=== PATIENT | female | born 1980 | race Hispanic/Latino ===

== ENCOUNTER 2020-06-07 15:15 | Inpatient (IN) | payer SELFPAY ==
[~2020-06-07 15:15] MED LIST: Iopamidol-370 76% 500 ML 1 ML ONE
[2020-06-07 16:35] LABS: Bacteria/HPF 2+ HPF (None Seen); Bilirubin Negative (Negative); Blood, Urine Negative (Negative); Clarity Turbid (Clear); Glucose, Urine (Dipstick) Normal (Negative); Ketone, Urine Negative (Negative); Leukocyte Negative Leu/uL (Negative); Mucous/LPF 1+ LPF (<2+); Nitrite Negative (Negative); Protein, Urine (Dipstick) 100 mg/dL (Neg-Trace); RBC/HPF 0-3 HPF (0-3); Specific Gravity, Urine 1.025 (1.002-1.036); Urobilinogen 6 mg/dL (Less than 2)
[2020-06-07 16:50] LABS: #Eosinphils 0.1 thou/uL (0.0-0.7); #Lymphocytes 0.8 thou/uL (1.20-3.40); #Monocytes 0.7 thou/uL (0.11-0.59); #Neutrophils 4.1 thou/uL (1.40-6.50); %Basophils 0.7 % (0.0-1.0); %Eosinophils 2.5 % (0.0-10.0); %Lymphocytes 14.3 % (21.0-51.0); %Monocytes 12.1 % (0.0-10.0); %Neutrophils 70.4 % (42.0-75.0); Hemoglobin 10.7 g/dL (12.0-16.0); Mean Corpuscular HGB CONC 31.2 g/dL (32.0-36.0); Mean Corpuscular Hemoglobin 24.9 pg (27.0-31.0); Mean Corpuscular Volume 79.8 fL (78.0-98.0); Mean Platelet Volume 9.5 fL (7.4-10.4); Platelet Count 173 thou/uL (130-400); RBC Distribution Width 15.7 % (11.5-14.5); Red Blood Cell (RBC) Count 4.32 mill/uL (4.20-5.40); White Blood Cell (WBC) Count 5.8 thou/uL (4.8-10.8)
[2020-06-07 17:11] LABS: ALT (SGPT) 18 U/L (8-55); AST (SGOT) 35 U/L (5-34); Albumin 3.8 g/dL (3.5-5.0); Alkaline Phosphatase 187 U/L (40-110); Anion Gap 14 mmol/L (10-20); BUN (Urea Nitrogen) 8 mg/dL (7.0-18.7); Bilirubin, Total 3.8 mg/dL (0.2-1.2); Calc. Creatinine Clearance 0 mL/min (70-130); Calcium 8.3 mg/dL (7.8-10.44); Carbon Dioxide 22 mmol/L (22-29); Chloride 102 mmol/L (98-107); Globulin 3.6 g/dL (2.4-3.5); Glucose 136 mg/dL (70-105); Lipase 32 U/L (8-78); Magnesium 1.8 mg/dL (1.6-2.6); Protein, Total 7.4 g/dL (6.0-8.3); Sodium 134 mmol/L (136-145)
--- NOTE | 2020-06-07 17:25 | RAD ---
RADIOGRAPH CHEST 1 VIEW: DATE: 06/07/2020 HISTORY: 39-year-old female with dyspnea FINDINGS: Cardiac shadow is severely enlarged. There is no evidence of airspace density, pulmonary edema, or pn eumothorax. The lateral costophrenic angles are not effaced. IMPRESSION: 1) No acute pulmonary findings. 2) severe cardiomegaly without pulmonary edema.
[2020-06-07 18:11] LABS: BHCG - Serum Negative (NEGATIVE); Pregs Control Background? CLEAR/WHITE (CLR/WHITE); Pregs Control Bar Appear? YES (CONTROL BAR)
--- NOTE | 2020-06-07 18:40 | CT ---
CT ABDOMEN WITH CONTRAST CT PELVIS WITH CONTRAST: DATE: 06/07/2020 HISTORY: 39-year-old female with generalized abdominal pain and distention COMPARISON: None TECHNIQUE: IV injection of iodinated contrast media: administered. Oral contrast media:Not administered FINDINGS: Severe cardiomegaly with four-chamber dilation. Moderate-sized pericardial effusion. No pleural effusion or consolidation at lung bases. Diffusely very dilated hepatic veins and IVC. Fatty liver. No splenomegaly. Small to moderate amount of free fluid around the liver and spleen. Moderate volume of free fluid along right paracolic gutter, and large amount of free fluid along the left paracolic gutter. Moderate to large volume of free fluid within pelvic cavity. Dilated bilateral common iliac, internal iliac, and external iliac, veins. Normal bilateral kidneys. Normal abdominal aorta and common iliac arteries. No adrenal mass. Normal appendix. No gross pancreatic abnormality. No small bowel dilation. No pneumoperitoneum. Presence of ascites and mesenteric edema makes it difficult to evaluate for diverticulitis. Extensive edema throughout the subcutaneous fat circumferentially around the abdominal cavity. IMPRESSION: 1) severe cardiomegaly with severe four-chamber dilation. 2) diffuse dilation of hepatic veins and inferior vena cava due to increased right atrial back pressu re. 3) moderate volume of ascites. 4) anasarca. 5) pericardial effusion
--- NOTE | 2020-06-07 20:36 | PDOC.HHP ---
Hospitalist HPI - History of Present Illness nausea and vomiting History of Present Illness: This is a 39-year-old female patient with no significant past medical history Who presents with a 2-week history of intermittent nausea vomiting and weakness. Symptoms got progressively worse with associated swelling of her feet and abdomen leading her family to bring her to the ED for further evaluation. Nausea and vomiting typically occurs in the morning with nonbloody vomitus mainly phlegms. She denies any associated abdominal pain, diarrhea constipation dysuria frequency or hematuria. She notes intermittent swelling of her lower extremities when she walks and usually occurs by the end of the day. She also does admit to easy fatigability and shortness of breath but no orthopnea or paroxysmal nocturnal dyspnea. At presentation BP was 132/88, pulse 124, respiratory rate 18, temperature 91.1 and saturating 99% on room air. She had a mild normocytic anemia of 10.7, hyponatremia of 134, glucose 136, AST 35, alkaline phosphatase 187 BNP 123. Lipase was 32. Chest x-ray showed severe cardiomegaly without pulmonary edema. CT abdomen also noted severe four-chamber dilation of the heart with moderate si zed pericardial effusion. Hospitalist History - Past Medical History Cardiac: reports: no pertinent history - Past Surgical History Past Surgical History: reports: - Family History Family History: reports: no pertinent history - Social History Smoking Status: Never smoker Alcohol: reports: None Living Situation: With Family - Exam General Appearance: awake alert General - other findings: Obese, in no acute distress ENT: normocephalic atraumatic, no oropharyngeal lesions Neck: supple, symmetric Heart: RRR, no murmur, no gallops, no rubs Respiratory: CTAB, no rales, no ronchi Gastrointestinal: soft, non-tender, normal bowel sounds, no palpable masses, distended Extremities: no cyanosis, no clubbing, 1+ LE edema Neurological: cranial nerve grossly intact, no focal deficits Psychiatric: normal affect, normal behavior, A&O x 3 Hospitalist Results - Labs Result Diagrams: 06/11/20 04:55 06/11/20 04:55 Lab results: WBC 5.8 thou/uL (4.8-10.8) 06/07/20 16:43 Hgb 10.7 g/dL (12.0-16.0) L 06/07/20 16:43 Hct 34.5 % (36.0-47.0) L 06/07/20 16:43 MCV 79.8 fL (78.0-98.0) 06/07/20 16:43 Plt Count 173 thou/uL (130-400) 06/07/20 16:43 Neutrophils % 70.4 % (42.0-75.0) 06/07/20 16:43 Sodium 134 mmol/L (136-145) L 06/07/20 16:43 Potassium 4.0 mmol/L (3.5-5.1) 06/07/20 16:43 Chloride 102 mmol/L (98-107) 06/07/20 16:43 Carbon Dioxide 22 mmol/L (22-29) 06/07/20 16:43 BUN 8 mg/dL (7.0-18.7) 06/07/20 16:43 Creatinine 0.68 mg/dL (0.6-1.1) 06/07/20 16:43 Glucose 136 mg/dL (70-105) H 06/07/20 16:43 Lactic Acid 1.6 mmol/L (0.5-2.2) 06/07/20 16:43 Calcium 8.3 mg/dL (7.8-10.44) 06/07/20 16:43 Total Bilirubin 3.8 mg/dL (0.2-1.2) H 06/07/20 16:43 AST 35 U/L (5-34) H 06/07/20 16:43 ALT 18 U/L (8-55) 06/07/20 16:43 Alkaline Phosphatase 187 U/L (40-110) H 06/07/20 16:43 B-Natriuretic Peptide 123.3 pg/mL (0-100) H 06/07/20 17:37 Serum Total Protein 7.4 g/dL (6.0-8.3) 06/07/20 16:43 Albumin 3.8 g/dL (3.5-5.0) 06/07/20 16:43 Lipase 32 U/L (8-78) 06/07/20 16:43 Urine Ketones Negative mg/dL (Negative) 06/07/20 15:59 Urine Blood Negative (Negative) 06/07/20 15:59 Urine Nitrite Negative (Negative) 06/07/20 15:59 Ur Leukocyte Esterase Negative Geronimo/uL (Negative) 06/07/20 15:59 Urine RBC 0-3 HPF (0-3) 06/07/20 15:59 Urine WBC 4-6 HPF (0-3) A 06/07/20 15:59 Ur Squamous Epith Cells 4-6 HPF (0-3) A 06/07/20 15:59 Urine Bacteria 2+ HPF (None Seen) A 06/07/20 15:59 Hospitalist H&P A/P - Plan Plan: This is a 39-year-old female patient with no significant past medical history presents with with nausea vomiting and generalized body swelling. Initial evaluation concerning for severe cardiomyopathy with moderate pericardial effusion and ascites. Severe four-chamber cardiomyopathy Acute on cardiology Order further evaluation of echo Monitor on telemetry Cardiology consult in a.m. Acute heart failure exacerbation Likely secondary to cardiomyopathy of unclear etiology. We will diureseshe is Joanne mclean. Will start a 20 and increase to 40 Echocardiogram in a.m. Appreciate cardiology input. Moderate pericardial effusion Would require possible drainage Consult cardiology. Tachycardia Unclear etiology. She is slightly anemic however. Likely due to cardiomyopathy Start carvedilol Appreciate cardiology evaluation. Ascites Likely secondary to heart failure Start diuresis Nausea and vomiting Unclear etiology As needed ondansetron Monitor electrolytes VT prophylaxisLovenox CODE STATUSfull code
[2020-06-07 21:31] VITALS: BMI 48.2
[2020-06-07] MEDS ORDERED: Carvedilol 6.25 MG TAB PO SCH (22:00)
[2020-06-08 04:35] LABS: #Eosinphils 0.1 thou/uL (0.0-0.7); #Lymphocytes 0.7 thou/uL (1.20-3.40); #Monocytes 0.6 thou/uL (0.11-0.59); #Neutrophils 3.4 thou/uL (1.40-6.50); %Basophils 0.8 % (0.0-1.0); %Eosinophils 1.9 % (0.0-10.0); %Lymphocytes 14.4 % (21.0-51.0); Hemoglobin 10.3 g/dL (12.0-16.0); Mean Corpuscular HGB CONC 30.5 g/dL (32.0-36.0); Mean Corpuscular Hemoglobin 24.5 pg (27.0-31.0); Mean Corpuscular Volume 80.3 fL (78.0-98.0); Mean Platelet Volume 9.5 fL (7.4-10.4); Platelet Count 152 thou/uL (130-400); RBC Distribution Width 15.9 % (11.5-14.5); Red Blood Cell (RBC) Count 4.19 mill/uL (4.20-5.40); White Blood Cell (WBC) Count 4.8 thou/uL (4.8-10.8)
[2020-06-08 04:45] LABS: SARS-CoV-2 MS2 Positive; SARS-CoV-2 N Gene Negative; SARS-CoV-2 S Gene Negative; SARS-CoV-2 by NAA Not Detected (NotDetected); SARS-CoV-2 orf1ab Negative
[2020-06-08 04:55] LABS: Anion Gap 13 mmol/L (10-20); BUN (Urea Nitrogen) 9 mg/dL (7.0-18.7); Calc. Creatinine Clearance 198 mL/min (70-130); Calcium 8.1 mg/dL (7.8-10.44); Carbon Dioxide 21 mmol/L (22-29); Chloride 103 mmol/L (98-107); Glucose 122 mg/dL (70-105); Potassium 4.4 mmol/L (3.5-5.1); Sodium 133 mmol/L (136-145)
[2020-06-08] MEDS ORDERED: Furosemide 20 MG/2 ML VIAL SLOW IVP SCH (09:00)
[2020-06-08] MEDS: Enoxaparin Sodium 40 MG/0.4 ML SYRINGE SC SCH (09:04)
[2020-06-08] MEDS: Carvedilol 6.25 MG TAB PO SCH ×2 (09:05→16:46)
[2020-06-08] MEDS ORDERED: Iopamidol-370 76% 500 ML 1 ML ONE (09:39)
--- NOTE | 2020-06-08 10:53 | CON ---
DATE OF CONSULTATION: REASON FOR CONSULTATION: Edema and pericardial effusion. HISTORY OF PRESENT ILLNESS: Ms. Fairbanks is a 39-year-old woman with no significant past medical history. Over the last week, she has had increased abdominal girth and lower extremity edema. She denies shortness of breath. She states she has gained 20 pounds over the last 2 weeks. No nausea, vomiting, or other associated symptoms. She is morbidly obese with a BMI of 48. She denies being sedentary. She also denies travel outside the country. PAST MEDICAL HISTORY: Obesity, otherwise negative. SURGICAL HISTORY: . FAMILY HISTORY: Negative. SOCIAL HISTORY: No current tobacco or alcohol use. She currently works as a signaler. REVIEW OF SYSTEMS: A 10-point review of systems is reviewed as above, otherwise negative. She also denies snoring. PHYSICAL EXAMINATION: VITAL SIGNS: Blood pressure 108/67, pulse 110, respirations 20. GENERAL: Patient is a pleasant woman who is in no acute distress. The patient appears her stated age. NEUROLOGIC: The patient is alert and oriented x3 with no focal neurologic deficits. HEENT: Sclerae without icterus. Mouth has moist mucous membranes with normal pallor. NECK: No JVD. Carotid upstroke brisk. No bruits bilaterally. LUNGS: Clear to auscultation with unlabored respirations. BACK: No scoliosis or kyphosis. CARDIAC: Regular rate and rhythm with normal S1 and S2. No S3 or S4 noted. No significant rubs, murmurs, thrills, or gallops noted throughout the precordium. PMI is not displaced. There is no parasternal heave. ABDOMEN: Distention. EXTREMITIES: 3+ pitting edema. SKIN: No gross abnormalities. PERTINENT LABORATORY DATA: Include a hemoglobin of 10.3, creatinine 0.68. Glucose 122, alkaline phosphatase 187, AST of 35. BNP of 123. CT scan of the chest showed a moderate-sized pericardial effusion with mitral enlargement. Right ventricle and left ventricle appeared enlarged. Preliminary echo with normal LVEF. Right ventricle appears enlarged with severe tricuspid regurgitation. Small pericardial effusion present. IMPRESSION: 1. Anasarca. 2. Edema. 3. Obesity. 4. aflutter RECOMMENDATIONS: Ms. Fairbanks's prelim echo did suggest enlarged right ventricle. The acuity of her current demise is unknown. At this point, I recommend Lasix to relieve some of her extravascular and intravascular volume. We would recommend a CT of the chest to rule out PE. She also likely has obstructive sleep apnea, but does not account for the acuity. Agree with adding Coreg. May also consider digoxin. Pt in aflutter which may not be the primary issue but a byproiduct of cause of RV dysfunction. Consult EP. Job ID: [id number] MTDD
[2020-06-08] MEDS ORDERED: Furosemide 40 MG/4 ML VIAL IVP SCH (12:30)
--- NOTE | 2020-06-08 13:01 | PDOC.HOSPP ---
- Subjective Encounter Date: 06/08/20 Encounter Time: 10:20 Subjective: Patient sitting in the chair. Yakut speaking only. Communicated with her through [employer] mathematics faculty member. She has 2+ pitting edema. - Objective Vital Signs & Weight: Vital Signs (12 hours) Temp Pulse Resp BP BP Pulse Ox 06/08/20 11:00 98 F 112 H 16 107/55 L 98 06/08/20 09:05 108/86 06/08/20 07:00 98.5 F 110 H 16 108/67 99 06/08/20 03:35 98.5 F 115 H 18 103/63 98 06/08/20 01:00 98.1 F 115 H 24 H 101/70 99 Weight Weight 247 lb I&O: 06/07/20 06/08/20 06/09/20 06:59 06:59 06:59 Intake Total 720 Balance 720 Result Diagrams: 06/08/20 04:13 06/08/20 04:13 Hospitalist ROS - Medication Medications: Active Medications Generic Name Dose Route Start Last Admin Trade Name Medardo PRN Reason Stop Dose Admin Carvedilol 6.25 mg 06/08/20 08:00 06/08/20 09:05 Carvedilol 6.25 Mg Tab PO 6.25 mg BID-WM MIKE Administration Enoxaparin Sodium 40 mg 06/08/20 09:00 06/08/20 09:04 Enoxaparin Sodium 40 Mg/0.4 Ml Syringe SC 40 mg 0900 MIKE Administration - Exam General Appearance: NAD, awake alert Eye: PERRL ENT: normocephalic atraumatic Neck: supple Heart: RRR, normal peripheral pulses Respiratory: CTAB, normal chest expansion Gastrointestinal: soft, normal bowel sounds Extremities: 2+ LE edema Neurological: no focal deficits Psychiatric: normal affect, normal behavior, A&O x 3 Hosp A/P - Plan 39-year-old female patient with no significant past medical history presents with with nausea vomiting and generalized body swelling. Initial evaluation concerning for severe cardiomyopathy with moderate pericardial effusion and ascites. Severe four-chamber cardiomyopathy -Probable acute diastolic CHF exacerbation -Echo pending Cardiology consulted -IV diuresis Moderate pericardial effusion -Hemodynamically stable Ascites Portal gastropathy Likely secondary to heart failure Start diuresis Nausea and vomiting -Probably due to portal gastropathy As needed ondansetron Monitor electrolytes VT prophylaxisLovenox CODE STATUSfull code TSH and hepatitis panel
--- NOTE | 2020-06-08 17:48 | CT ---
CTA Angio Chest W Con 06/08/2020 5:30 PM Indication: History of shortness of breath and chest discomfort Technique: Multiple CTA images were obtained of the thorax with IV contrast. 3-D rendering: MIP lia nstructed images were created and reviewed. Comparison: No relevant prior studies available. Findings: Pulmonary arteries: No central or segmental pulmonary embolus is evident. Heart and Aorta: There is prominent cardiomegaly with moderate pericardial effusion Mediastinum:Normal appearing. No enlarged lymph nodes. Lungs:Subsegmental volume loss and posterior aspects of both upper lobes. There is subsegmental volum e loss in the left lower lobe. Pleural space: Clear. Upper Abdomen: There is cirrhotic morphology of the liver. There is reflux of contrast within the IV C and hepatic veins consistent with right heart dysfunction. Osseous Structures: There is scattered degenerative and osteoarthritic change present. Soft tissues:No abnormality. Other findings:None. Impression: 1. No central segmental pulmonary most. 2. Severe cardiomegaly with moderate pericardial effusion 3. Cirrhotic morphology of the liver with reflux of contrast in the IVC and hepatic veins consistent with some right heart dysfunction.
[2020-06-08] MEDS ORDERED: FLU VACC QS2020-21(6MOS UP)/PF 60 MCG/0.5 ML SYRINGE IM ONE (21:00)
[2020-06-09] MEDS: Furosemide 40 MG/4 ML VIAL SLOW IVP SCH ×2 (05:28→11:54)
[2020-06-09] MEDS: Enoxaparin Sodium 40 MG/0.4 ML SYRINGE SC SCH (08:31)
[2020-06-09] MEDS: Carvedilol 6.25 MG TAB PO SCH (08:31)
--- NOTE | 2020-06-09 13:51 | CON ---
DATE OF CONSULTATION: 06/09/2020 REASON FOR CONSULTATION: Typical atrial flutter. HISTORY OF PRESENT ILLNESS: Ms. Fairbanks is a pleasant 39-year-old Nigerian-speaking female with no prior cardiac history, admitted with abdominal and lower extremity edema. She was noted to be in typical atrial flutter with 2-[address] showed a pericardial effusion, which turned out to be trivial on echocardiogram and cirrhotic morphology of the liver with dilated IVC and hepatic veins. Echocardiogram on June 08, 2020, showed severely dilated left atrium and severely dilated right atrium. The right ventricle is moderately dilated. There are severe tricuspid regurgitation and moderate mitral regurgitation. Left ventricular ejection fraction could not be assessed; however, the systolic function appears to be at the level of lower limits of normal to mildly depressed. She is currently being treated with IV diuresis. PAST MEDICAL HISTORY: Unremarkable. PAST SURGICAL HISTORY: section. FAMILY HISTORY: Unremarkable. SOCIAL HISTORY: , Nigerian-speaking. No alcohol. Never smoked. REVIEW OF SYSTEMS: 10-point review of systems negative other than lower extremity edema and abdominal distention. PHYSICAL EXAMINATION: GENERAL: Alert and oriented x4. No apparent distress. VITAL SIGNS: Afebrile, pulse 114, blood pressure 102/64, respiratory rate 12, oxygen saturation 97% on room air. HEENT: No lesions. Sclerae clear. CARDIOVASCULAR: Tachycardic, regular rhythm. LUNGS: Clear to auscultation bilaterally. ABDOMEN: Distended. EXTREMITIES: 2+ bilateral edema. LABORATORY DATA: WBC 4.8, hemoglobin 10.3, platelets 152. Sodium 134, potassium 4.0, AST 35, ALT 18. BNP 123. EKG; typical atrial flutter with 2-1 conduction. IMPRESSION AND PLAN: 1. Anasarca. 2. Morbid obesity. 3. Typical atrial flutter. 4. Severe biatrial enlargement with moderately dilated right ventricle, evidence of right heart failure. RECOMMENDATIONS: 1. Diuresis. 2. Consider transesophageal echocardiogram and cardioversion for her atrial flutter. She is not currently a candidate for ablation. 3. Workup right heart failure and possible liver disease. 4. Check TSH. Job ID: [id number]
--- NOTE | 2020-06-09 14:26 | PDOC.HOSPP ---
- Subjective Encounter Date: 06/09/20 Encounter Time: 11:10 Subjective: Patient doing well she has been diuresed but her output is not very impressive for Lasix IV twice a day. Spouse at bedside both Afghan speaking only. Fortunately their daughter is on the phone I was able to do video conversation with her patient needs cardioversion for her a flutter. I was trying to get more information on the etiology behind her cardiomyopathy specifically right heart failure. No recent . Patient does not drink alcohol. Symptoms were only acute in the sense 2 to 3 weeks duration. - Objective Vital Signs & Weight: Vital Signs (12 hours) Temp Pulse Resp BP BP Pulse Ox 06/09/20 11:49 97.9 F 72 17 99/55 L 99 06/09/20 07:46 97.2 F L 101 H 18 113/75 98 06/09/20 03:05 97.7 F 113 H 16 106/70 99 Weight Weight 247 lb 14.4 oz I&O: 06/08/20 06/09/20 06/10/20 06:59 06:59 06:59 Intake Total 720 600 Output Total 300 Balance 720 300 Result Diagrams: 06/08/20 04:13 06/08/20 04:13 Hospitalist ROS - Medication Medications: Active Medications Generic Name Dose Route Start Last Admin Trade Name Freq PRN Reason Stop Dose Admin Carvedilol 6.25 mg 06/08/20 08:00 06/09/20 08:31 Carvedilol 6.25 Mg Tab PO 6.25 mg BID-WM MIKE Administration Enoxaparin Sodium 40 mg 06/08/20 09:00 06/09/20 08:31 Enoxaparin Sodium 40 Mg/0.4 Ml Syringe SC 40 mg 0900 MIKE Administration Furosemide 40 mg 06/09/20 06:00 06/09/20 11:54 Furosemide 40 Mg/4 Ml Vial SLOW IVP 40 mg 0600,1200 MIKE Administration - Exam General Appearance: NAD, awake alert Eye: PERRL ENT: normocephalic atraumatic Neck: supple Heart: RRR Respiratory: CTAB, normal chest expansion Gastrointestinal: soft, normal bowel sounds Neurological: cranial nerve grossly intact, no focal deficits Psychiatric: A&O x 3 Hosp A/P - Plan 39-year-old female patient with no significant past medical history presents with with nausea vomiting and generalized body swelling. Initial evaluation concerning for severe cardiomyopathy with moderate pericardial effusion and ascites. Severe four-chamber cardiomyopathy -Probable acute diastolic CHF exacerbation -Echo showed low normal EF function; biatrial enlargement and severe right ventricle dilation aFlutter EP recommended transesophageal echo and cardioversion and and probably not a candidate for ablation at this time. -IV diuresis Moderate pericardial effusion CT however echo showed very trivial effusion Ascites Portal gastropathy Likely secondary to right heart failure -Since this is a right heart failure will be very careful with the diuresis. Her blood pressure is coming on the low normal side. I will titrate the diuretic dose as her blood pressure allows. -Also will reduce the Coreg dose. Nausea and vomiting -Probably due to portal gastropathy As needed ondansetron Monitor electrolytes VT prophylaxisLovenox CODE STATUSfull code TSH pending Covid Spouse at bedside both Afghan speaking only. Fortunately their daughter is on the phone I was able to do video conversation with her patient needs cardioversion for her a flutter. I was trying to get more information on the etiology behind her cardiomyopathy specifically right heart failure. No recent . No recent viral symptoms patient does not drink alcohol. Symptoms were only acute of 2 to 3 weeks duration. Patient does not want to go through cardioversion. Had a conversation with Dr. Angel, who would try tertiary center. Meanwhile I will titrate the diuretics as her blood pressure allows. -Placed a consult for CHF specialist Dr. Adams. Possible obstructive sleep apnea/obesity hypoventilation syndrome -Probable etiology for her right heart failure in addition to a flutter. She could also have a pulmonary hypertension even the echo does not make any comment on that. She does have a mitral valve calcifications. -She would benefit with outpatient sleep study. We will also request our overnight nurses to monitor her for any sleep apnea symptoms.
[2020-06-09] MEDS: Metolazone 2.5 MG TAB PO SCH (14:49)
--- NOTE | 2020-06-09 16:05 | CON ---
DATE OF CONSULTATION: 06/09/2020 HISTORY OF PRESENT ILLNESS: Ms. Fairbanks has had difficulty with diuresis. She has been on IV Lasix in addition to metolazone. She also continues to be in atrial flutter. PHYSICAL EXAMINATION: VITAL SIGNS: Blood pressure 97/68, pulse 82, temperature 97.9, heart rate 83. LUNGS: Clear to auscultation. HEART: Irregularly irregular. ABDOMEN: Distended. EXTREMITIES: 2 to 3+ pitting edema. PERTINENT LABORATORY DATA: Hemoglobin 10.3, hematocrit 32.7, platelet count of 152. Creatinine 0.68. Sodium 133, felt better with 3.8. AST 35, ALT of 18, alkaline phosphatase 187. IMPRESSION: 1. Right ventricular failure. 2. Passive venous congestion. 3. Obesity. RECOMMENDATIONS: Etiology to Ms. Fairbanks's current demise is unknown. This likely represents obstructive sleep apnea. Cannot completely exclude mitral stenosis. The mitral valve was heavily calcified with what appeared to be decreased excursion, but a pressure half-time could not be assessed due to atrial flutter. This though is felt to be less likely due to clear lungs. Her main issue has been edema, which is from RV failure. Discussed the case with the hospitalist, Dr. Beach. We will discontinue Coreg to allow her pressure to rise and continue Lasix in addition to metolazone. We would certainly consider Dobutrex, but I am concerned about an increased heart rate, therefore, decrease in cardiac output. I discussed ANJANA cardioversion, which would be the most optimal choice. She may have had this all long, but developed atrial flutter over the last several weeks causing her demise. We discussed ANJANA and cardioversion in full detail in Italian. The risks include, but not limited to the following: Damage to teeth, mouth, back of throat; damage to esophagus, as well as reaction to medication and aspiration pneumonia. Also discussed risks of cardioversion including stroke, burning of skin in addition to failed cardioversion. I did state that the risks were very low. Despite this being low, she has opted to not proceed with cardioversion. This limits our options on treatment. At this point, we will discontinue carvedilol in hopes that her blood pressure continues to increase to allow more diuretic use. We will have further discussion about the ANJANA cardioversion. Job ID: [id number]
[2020-06-09] MEDS ORDERED: Sodium Chloride 0.9% 10 ML ONE (21:19)
[2020-06-10 05:14] LABS: #Eosinphils 0.1 thou/uL (0.0-0.7); #Monocytes 0.6 thou/uL (0.11-0.59); #Neutrophils 2.8 thou/uL (1.40-6.50); %Basophils 0.6 % (0.0-1.0); %Eosinophils 1.9 % (0.0-10.0); %Lymphocytes 21.8 % (21.0-51.0); %Monocytes 13.2 % (0.0-10.0); %Neutrophils 62.6 % (42.0-75.0); Mean Corpuscular HGB CONC 30.3 g/dL (32.0-36.0); Mean Corpuscular Hemoglobin 24.2 pg (27.0-31.0); Mean Corpuscular Volume 79.9 fL (78.0-98.0); Mean Platelet Volume 9.8 fL (7.4-10.4); Platelet Count 156 thou/uL (130-400); RBC Distribution Width 15.7 % (11.5-14.5); Red Blood Cell (RBC) Count 4.12 mill/uL (4.20-5.40); White Blood Cell (WBC) Count 4.5 thou/uL (4.8-10.8)
[2020-06-10] MEDS ORDERED: Sodium Chloride 0.9% 10 ML ONE (05:23)
[2020-06-10 05:40] LABS: Anion Gap 15 mmol/L (10-20); BUN (Urea Nitrogen) 14 mg/dL (7.0-18.7); Calc. Creatinine Clearance 185 mL/min (70-130); Calcium 8.2 mg/dL (7.8-10.44); Carbon Dioxide 24 mmol/L (22-29); Chloride 100 mmol/L (98-107); Glucose 96 mg/dL (70-105); Sodium 136 mmol/L (136-145)
[2020-06-10] MEDS: Furosemide 20 MG/2 ML VIAL SLOW IVP SCH ×2 (06:08→12:27)
[2020-06-10] MEDS: Enoxaparin Sodium 40 MG/0.4 ML SYRINGE SC SCH (08:17)
--- NOTE | 2020-06-10 09:16 | PRG ---
DATE OF SERVICE: 06/10/2020 SUBJECTIVE: Ms. Fairbanks feels better overall. No significant shortness of breath. She states the swelling in her abdominal region has been reduced. She has lost 3 pounds, although she has had minimal changes over 24 hours. Her Coreg has been discontinued to allow her pressure to rise, to allow Lasix and metolazone to be given. She continues to be adamant about not proceeding with any types of procedure or prefer medical therapy. OBJECTIVE: VITAL SIGNS: Blood pressure 103/70, pulse 58, temperature 97.9. LUNGS: Clear to auscultation. HEART: Regular rate and rhythm. ABDOMEN: Distended. EXTREMITIES: 2+ pitting edema. PERTINENT LABORATORY DATA: Hemoglobin 10.0, hematocrit 32.9. BNP of 123. TSH 8.3. IMPRESSION: 1. Right-sided failure. 2. Obesity. RECOMMENDATIONS: Etiology to right-sided failure is unknown. CK and MB and troponin had been drawn to assess for a possible myocarditis, although the patient has not had a viral syndrome. Her TSH is elevated and will need to be treated. It would be deferred to hospitalist. Her symptoms may be related to mitral stenosis, which was difficult to assess given she had atrial flutter. Pressure half-time could not be assessed, therefore necessitating ANJANA to assess the mitral valve. Her symptoms though do not correspond with mitral stenosis given no shortness of breath and no significant pulmonary edema with normal BNP. Most likely etiology is undiagnosed sleep apnea, which may be difficult for Ms. Fairbanks to diagnose as an outpatient given limited financial resources. The patient also has severe tricuspid regurgitation, which is likely related to RV failure and not vice versa. The patient has no previous congenital heart defects to her knowledge. Also no reason for constrictive pericarditis. May discuss with Pulmonary on further etiologies. Job ID: [id number]
[2020-06-10] MEDS: Metolazone 2.5 MG TAB PO SCH (12:27)
--- NOTE | 2020-06-10 12:58 | PDOC.HOSPP ---
- Subjective Encounter Date: 06/10/20 Encounter Time: 09:55 Subjective: Patient appears well. She lost few pounds with diuresis to be exact 3 pounds. Coreg has been discontinued. I discussed with the patient regarding a transesophageal echo as well as cardioversion. Patient does not want any intervention at this point. That limits any aggressive medical intervention at this point. We will diurese her as much as her blood pressure allows. If she changed her mind in the next day or 2 will request the on-call orthotic practitioner for transition esophageal echo and cardioversion. I believe she has chronic cardiomyopathy, which is overt and recently due to her A. fib/flutter she became symptomatic. - Objective Vital Signs & Weight: Vital Signs (12 hours) Temp Pulse Pulse Pulse Resp BP BP 06/10/20 12:00 98.5 F 74 16 06/10/20 09:48 104 H 89 120/78 118/81 06/10/20 08:00 98.2 F 87 16 06/10/20 04:40 97.9 F 58 L 18 BP Pulse Ox 06/10/20 12:00 106/69 99 06/10/20 09:48 06/10/20 08:00 113/70 98 06/10/20 04:40 103/70 98 Weight Weight 244 lb I&O: 06/09/20 06/10/20 06/11/20 06:59 06:59 06:59 Intake Total 600 830 Output Total 300 900 Balance 300 -70 Result Diagrams: 06/10/20 04:22 06/10/20 04:22 Hospitalist ROS - Medication Medications: Active Medications Generic Name Dose Route Start Last Admin Trade Name Medardo PRN Reason Stop Dose Admin Enoxaparin Sodium 40 mg 06/08/20 09:00 06/10/20 08:17 Enoxaparin Sodium 40 Mg/0.4 Ml Syringe SC 40 mg 0900 MIKE Administration Furosemide 20 mg 06/10/20 06:00 06/10/20 12:27 Furosemide 20 Mg/2 Ml Vial SLOW IVP 20 mg 0600,1200 MKIE Administration Metolazone 2.5 mg 06/09/20 13:30 06/10/20 12:27 Metolazone 2.5 Mg Tab PO 2.5 mg 1330 MIKE Administration - Exam General Appearance: NAD, awake alert Eye: PERRL ENT: normocephalic atraumatic Neck: supple Heart: RRR, normal peripheral pulses Respiratory: CTAB, normal chest expansion Gastrointestinal: soft, normal bowel sounds Extremities: 1+ LE edema Neurological: cranial nerve grossly intact, no focal deficits Musculoskeletal: generalized weakness Psychiatric: normal affect, normal behavior, A&O x 3 Hosp A/P - Plan 39-year-old female patient with no significant past medical history presents with with nausea vomiting and generalized body swelling. Initial evaluation concerning for severe cardiomyopathy with moderate pericardial effusion and ascites. Severe four-chamber cardiomyopathy -Probable acute diastolic CHF exacerbation -Echo showed low normal EF function; biatrial enlargement and severe right ventricle dilation aFlutter EP recommended transesophageal echo and cardioversion and and probably not a candidate for ablation at this time. -IV diuresis Moderate pericardial effusion CT however echo showed very trivial effusion Ascites Portal gastropathy Likely secondary to right heart failure -Since this is a right heart failure will be very careful with the diuresis. Her blood pressure is coming on the low normal side. I will titrate the diuretic dose as her blood pressure allows. -Also will reduce the Coreg dose. Nausea and vomiting -Probably due to portal gastropathy As needed ondansetron Monitor electrolytes VT prophylaxisLovenox CODE STATUSfull code TSH pending Covid Spouse at bedside both Hungarian speaking only. Fortunately their daughter is on the phone I was able to do video conversation with her patient needs cardioversion for her a flutter. I was trying to get more information on the etiology behind her cardiomyopathy specifically right heart failure. No recent . No recent viral symptoms patient does not drink alcohol. Symptoms were only acute of 2 to 3 weeks duration. Patient does not want to go through cardioversion. Had a conversation with Dr. Angel, who would try tertiary center. Meanwhile I will titrate the diuretics as her blood pressure allows. -Placed a consult for CHF specialist Dr. Adams. Possible obstructive sleep apnea/obesity hypoventilation syndrome -Probable etiology for her right heart failure in addition to a flutter. She could also have a pulmonary hypertension even the echo does not make any comment on that. She does have a mitral valve calcifications. -She would benefit with outpatient sleep study. We will also request our overnight nurses to monitor her for any sleep apnea symptoms. 29th likely she has chronic cardiomyopathy, which was overt and recently due to her A. fib/flutter she became symptomatic. I discussed with the patient regarding a transesophageal echo as well as cardioversion. Patient does not want any intervention at this point. She expressed to the same with the Dr. Angel. Her unwillingness limits any aggressive medical intervention at this point. We will diurese her as much as her blood pressure allows. If she changed her mind in the next day or 2 will request the on-call orthotic practitioner for transition esophageal echo and cardioversion. She also likely has hypothyroidism. -This contributes to some of her symptoms of anasarca. -She is not on any supplement at home -We will check free T4 and start her on low-dose thyroid supplement. Possible obstructive sleep apnea and obesity hypoventilation syndrome -Though proper sleep study has to be done as an outpatient , it is unclear whether she would follow through. -Will request emergency room physician assistant operations representative for any recommendations including AutoPap, as she needs transesophageal echo as well as cardioversion to restore sinus rhythm to prevent the worsening of her cardiomyopathy. --And if necessary she may need ischemic work-up including cath. Morbid obesity It does not appear patient follows with health care routinely -
[2020-06-10] MEDS ORDERED: Potassium Chloride 20 MEQ TAB PO SCH (13:00)
--- NOTE | 2020-06-10 16:15 | CON ---
DATE OF CONSULTATION: 06/10/2020 HISTORY OF PRESENT ILLNESS: Ms. Fairbanks is a 39-year-old female who is Setswana-speaking. I was consulted for possible sleep apnea. She was presented with atrial flutter, ascites, hepatic congestion, and finding suggestive of pulmonary hypertension. She does have significant left atrial dilation and mitral regurgitation. Unfortunately, the patient has declined further workup or therapy of her atrial flutter. PAST MEDICAL HISTORY: Otherwise unremarkable. FAMILY HISTORY: Unremarkable. Negative for lung disease in early age. REVIEW OF SYSTEMS: She is nonsmoker, nondrinker. Her 10-point review of systems otherwise negative. PHYSICAL EXAMINATION: GENERAL: She is very pleasant, cooperative. She is 5 feet tall, 244 pounds. BMI is 47. VITAL SIGNS: Her heart rate is in the 80s. She is afebrile. Respiratory rate is in the teens. Oximetry is 99% on room air. Blood pressure 120/78. Intake and output reported as -70 mL today. DIAGNOSTIC DATA: Chest x-ray is unremarkable except for cardiomegaly. IMPRESSION: Elevated pulmonary artery pressures, possibly secondary to sleep apnea. I suspect given her left atrial dilation, mitral valve disease may be contributing. Unfortunately, she has declined further workup or treatment of her atrial flutter or further workup of her valvular heart disease. We do not do inpatient sleep studies, so the only option will be referred to have an outpatient sleep study scheduled if she wishes to go through that. I do not really have any other therapeutic options. I doubt she has asthma. I doubt she has primary pulmonary hypertension. This is a 50 min consult greater than 50% of the time was spent on the unit with coordination of care. Job ID: [id number] MTDD
[2020-06-11] MEDS: Furosemide 20 MG/2 ML VIAL SLOW IVP SCH ×2 (05:25→13:08)
[2020-06-11] MEDS: Levothyroxine Sodium 50 MCG TAB PO SCH (05:25)
[2020-06-11 05:28] LABS: #Eosinphils 0.1 thou/uL (0.0-0.7); #Lymphocytes 1.2 thou/uL (1.20-3.40); #Monocytes 0.7 thou/uL (0.11-0.59); #Neutrophils 2.8 thou/uL (1.40-6.50); %Basophils 0.6 % (0.0-1.0); %Eosinophils 1.7 % (0.0-10.0); %Lymphocytes 24.4 % (21.0-51.0); %Neutrophils 59.3 % (42.0-75.0); Hemoglobin 10.1 g/dL (12.0-16.0); Mean Corpuscular HGB CONC 31.3 g/dL (32.0-36.0); Mean Corpuscular Hemoglobin 24.7 pg (27.0-31.0); Mean Corpuscular Volume 78.9 fL (78.0-98.0); Mean Platelet Volume 9.7 fL (7.4-10.4); Platelet Count 170 thou/uL (130-400); RBC Distribution Width 15.4 % (11.5-14.5); Red Blood Cell (RBC) Count 4.08 mill/uL (4.20-5.40); White Blood Cell (WBC) Count 4.8 thou/uL (4.8-10.8)
[2020-06-11 05:43] LABS: Anion Gap 15 mmol/L (10-20); BUN (Urea Nitrogen) 10 mg/dL (7.0-18.7); Calc. Creatinine Clearance 183 mL/min (70-130); Calcium 8.5 mg/dL (7.8-10.44); Carbon Dioxide 29 mmol/L (22-29); Chloride 96 mmol/L (98-107); Glucose 91 mg/dL (70-105); Sodium 137 mmol/L (136-145)
[2020-06-11 05:46] LABS: Potassium 2.7 mmol/L (3.5-5.1)
[2020-06-11] MEDS: Potassium Chloride 20 MEQ TAB PO SCH ×2 (06:34→08:15)
[2020-06-11] MEDS: Enoxaparin Sodium 40 MG/0.4 ML SYRINGE SC SCH (08:15)
[2020-06-11] MEDS: Potassium Chloride 10 MEQ TAB PO SCH (08:15)
--- NOTE | 2020-06-11 12:13 | PDOC.HOSPP ---
- Subjective Encounter Date: 06/11/20 Encounter Time: 10:35 Subjective: I discussed with the patient through her daughter as an secured entrance monitor in the phone. And cardiac rehab staff nearby. - Objective Vital Signs & Weight: Vital Signs (12 hours) Temp Pulse Resp BP BP Pulse Ox 06/11/20 11:19 119 H 16 114/78 98 06/11/20 08:11 98.6 F 88 16 117/74 97 06/11/20 03:28 98.3 F 79 20 99/65 98 Weight Weight 244 lb 4.8 oz I&O: 06/10/20 06/11/20 06/12/20 06:59 06:59 06:59 Intake Total 830 1480 Output Total 900 Balance -70 1480 Result Diagrams: 06/11/20 04:55 06/11/20 04:55 Hospitalist ROS - Medication Medications: Active Medications Generic Name Dose Route Start Last Admin Trade Name Freq PRN Reason Stop Dose Admin Enoxaparin Sodium 40 mg 06/08/20 09:00 06/11/20 08:15 Enoxaparin Sodium 40 Mg/0.4 Ml Syringe SC 40 mg 0900 MIKE Administration Furosemide 20 mg 06/10/20 06:00 06/11/20 05:25 Furosemide 20 Mg/2 Ml Vial SLOW IVP 20 mg 0600,1200 MIKE Administration Levothyroxine Sodium 50 mcg 06/11/20 06:00 06/11/20 05:25 Levothyroxine Sodium 50 Mcg Tab PO 50 mcg 0600 MIKE Administration Metolazone 2.5 mg 06/09/20 13:30 06/10/20 12:27 Metolazone 2.5 Mg Tab PO 2.5 mg 1330 MIKE Administration Potassium Chloride 10 meq 06/11/20 09:00 06/11/20 08:15 Potassium Chloride 10 Meq Tab PO 10 meq DAILY MIKE Administration Sodium Chloride 10 ml 06/11/20 09:00 06/11/20 08:16 Flush - Normal Saline 10 Ml Syringe IVF 10 ml Q12HR MIKE Administration - Exam General Appearance: NAD, awake alert Eye: PERRL ENT: normocephalic atraumatic Neck: supple, no thyromegaly Heart: RRR, no rubs Respiratory: CTAB, normal chest expansion Gastrointestinal: soft, normal bowel sounds Extremities: 1+ LE edema Neurological: cranial nerve grossly intact, no focal deficits Psychiatric: A&O x 3 Hosp A/P - Plan 39-year-old female patient with no significant past medical history presents with with nausea vomiting and generalized body swelling. Initial evaluation concerning for severe cardiomyopathy with moderate pericardial effusion and ascites. Severe four-chamber cardiomyopathy -Probable acute diastolic CHF exacerbation -Echo showed low normal EF function; biatrial enlargement and severe right ventricle dilation aFlutter EP recommended transesophageal echo and cardioversion and and probably not a candidate for ablation at this time. -IV diuresis Moderate pericardial effusion CT however echo showed very trivial effusion Ascites Portal gastropathy Likely secondary to right heart failure -Since this is a right heart failure will be very careful with the diuresis. Her blood pressure is coming on the low normal side. I will titrate the diuretic dose as her blood pressure allows. -Also will reduce the Coreg dose. Nausea and vomiting -Probably due to portal gastropathy As needed ondansetron Monitor electrolytes VT prophylaxisLovenox CODE STATUSfull code TSH pending Covid Spouse at bedside both English speaking only. Fortunately their daughter is on the phone I was able to do video conversation with her patient needs cardioversion for her a flutter. I was trying to get more information on the etiology behind her cardiomyopathy specifically right heart failure. No recent . No recent viral symptoms patient does not drink alcohol. Symptoms were only acute of 2 to 3 weeks duration. Patient does not want to go through cardioversion. Had a conversation with Dr. Angel, who would try tertiary center. Meanwhile I will titrate the diuretics as her blood pressure allows. -Placed a consult for CHF specialist Dr. Adams. Possible obstructive sleep apnea/obesity hypoventilation syndrome -Probable etiology for her right heart failure in addition to a flutter. She could also have a pulmonary hypertension even the echo does not make any comment on that. She does have a mitral valve calcifications. -She would benefit with outpatient sleep study. We will also request our overnight nurses to monitor her for any sleep apnea symptoms. 29th likely she has chronic cardiomyopathy, which was overt and recently due to her A. fib/flutter she became symptomatic. I discussed with the patient regarding a transesophageal echo as well as cardioversion. Patient does not want any intervention at this point. She expressed to the same with the Dr. Angel. Her unwillingness limits any aggressive medical intervention at this point. We will diurese her as much as her blood pressure allows. If she changed her mind in the next day or 2 will request the on-call clinical fellow for transition esophageal echo and cardioversion. She also likely has hypothyroidism. -This contributes to some of her symptoms of anasarca. -She is not on any supplement at home -We will check free T4 and start her on low-dose thyroid supplement. Possible obstructive sleep apnea and obesity hypoventilation syndrome -Though proper sleep study has to be done as an outpatient , it is unclear wh ether she would follow through. -Will request stripper printed circuit boards adjuster electrical contacts for any recommendations including AutoPap, as she needs transesophageal echo as well as cardioversion to restore sinus rhythm to prevent the worsening of her cardiomyopathy. --And if necessary she may need ischemic work-up including cath. Morbid obesity It does not appear patient follows with health care routinely 30th = Her daughter name is Anne [phone] I explained that the risks and benefits of getting a transesophageal echo as well as cardioversion. The daughter said that she will discuss with the mom and the hopefully they will make the decision of whether to proceed with the procedure. I also explained that just getting diuretics is not going to be a good solution it would help temporarily but she would likely come back. Daughter expressed her understanding and will discuss with the mom to proceed further with the transesophageal echo as well as cardioversion. -
[2020-06-11] MEDS: Metolazone 2.5 MG TAB PO SCH (13:08)
[2020-06-12 05:05] LABS: #Eosinphils 0.1 thou/uL (0.0-0.7); #Monocytes 0.6 thou/uL (0.11-0.59); #Neutrophils 2.9 thou/uL (1.40-6.50); %Eosinophils 1.9 % (0.0-10.0); %Lymphocytes 21.2 % (21.0-51.0); %Monocytes 13.5 % (0.0-10.0); %Neutrophils 62.4 % (42.0-75.0); Hemoglobin 10.8 g/dL (12.0-16.0); Mean Corpuscular HGB CONC 30.9 g/dL (32.0-36.0); Mean Corpuscular Hemoglobin 24.5 pg (27.0-31.0); Mean Corpuscular Volume 79.1 fL (78.0-98.0); Mean Platelet Volume 9.9 fL (7.4-10.4); Platelet Count 155 thou/uL (130-400); RBC Distribution Width 15.6 % (11.5-14.5); Red Blood Cell (RBC) Count 4.41 mill/uL (4.20-5.40); White Blood Cell (WBC) Count 4.7 thou/uL (4.8-10.8)
[2020-06-12 05:22] LABS: Anion Gap 15 mmol/L (10-20); BUN (Urea Nitrogen) 9 mg/dL (7.0-18.7); Calc. Creatinine Clearance 196 mL/min (70-130); Calcium 8.7 mg/dL (7.8-10.44); Carbon Dioxide 26 mmol/L (22-29); Chloride 96 mmol/L (98-107); Glucose 92 mg/dL (70-105); Sodium 134 mmol/L (136-145)
[2020-06-12] MEDS: Furosemide 20 MG/2 ML VIAL SLOW IVP SCH ×2 (06:01→14:30)
[2020-06-12] MEDS: Levothyroxine Sodium 50 MCG TAB PO SCH (06:01)
[2020-06-12] MEDS: Potassium Chloride 10 MEQ TAB PO SCH (09:06)
[2020-06-12] MEDS: Enoxaparin Sodium 40 MG/0.4 ML SYRINGE SC SCH ×2 (09:09→09:12)
[2020-06-12] MEDS ORDERED: Enoxaparin Sodium 80 MG/0.8 ML SYRINGE SC SCH (09:15)
[2020-06-12] MEDS ORDERED: PROPOFOL 40 ML ONE (12:00)
[2020-06-12] MEDS ORDERED: PROPOFOL 20 ML ONE (12:49)
[2020-06-12] MEDS: Metolazone 2.5 MG TAB PO SCH (14:30)
--- NOTE | 2020-06-12 15:53 | PDOC.HOSPP ---
- Subjective Encounter Date: 06/12/20 Encounter Time: 12:30 Subjective: pt came back from cath area. s/p ANJANA and cardioversion, talk to the pt, over the google value analysis coordinator and daughter over the phone. - Objective Vital Signs & Weight: Vital Signs (12 hours) Temp Pulse Resp BP Pulse Ox 06/12/20 14:00 97.7 F 89 18 119/76 98 06/12/20 07:15 98.4 F 95 16 112/66 99 06/12/20 04:00 97.8 F 101 H 21 H 113/78 100 Weight Weight 240 lb 4.8 oz I&O: 06/11/20 06/12/20 06/13/20 06:59 06:59 06:59 Intake Total 1480 1060 250 Balance 1480 1060 250 Result Diagrams: 06/12/20 04:02 06/12/20 04:02 Hospitalist ROS - Medication Medications: Active Medications Generic Name Dose Route Start Last Admin Trade Name Freq PRN Reason Stop Dose Admin Furosemide 20 mg 06/10/20 06:00 06/12/20 14:30 Furosemide 20 Mg/2 Ml Vial SLOW IVP 20 mg 0600,1200 MIKE Administration Levothyroxine Sodium 50 mcg 06/11/20 06:00 06/12/20 06:01 Levothyroxine Sodium 50 Mcg Tab PO Not Given 0600 MIKE Metolazone 2.5 mg 06/09/20 13:30 06/12/20 14:30 Metolazone 2.5 Mg Tab PO 2.5 mg 1330 MIKE Administration Potassium Chloride 10 meq 06/11/20 09:00 06/12/20 09:06 Potassium Chloride 10 Meq Tab PO 10 meq DAILY MIKE Administration Sodium Chloride 10 ml 06/11/20 09:00 06/12/20 09:07 Flush - Normal Saline 10 Ml Syringe IVF 10 ml Q12HR MIKE Administration - Exam General Appearance: NAD, awake alert Eye: PERRL ENT: normocephalic atraumatic Neck: supple Heart: RRR, normal peripheral pulses Respiratory: CTAB Gastrointestinal: soft, normal bowel sounds Neurological: cranial nerve grossly intact, normal sensation to touch Psychiatric: A&O x 3 Hosp A/P - Plan 39-year-old female patient with no significant past medical history presents with with nausea vomiting and generalized body swelling. Initial evaluation concerning for severe cardiomyopathy with moderate pericardial effusion and ascites. Severe four-chamber cardiomyopathy -Probable acute diastolic CHF exacerbation -Echo showed low normal EF function; biatrial enlargement and severe right ventricle dilation aFlutter EP recommended transesophageal echo and cardioversion and and probably not a candidate for ablation at this time. -IV diuresis Moderate pericardial effusion CT however echo showed very trivial effusion Ascites Portal gastropathy Likely secondary to right heart failure -Since this is a right heart failure will be very careful with the diuresis. Her blood pressure is coming on the low normal side. I will titrate the diuretic dose as her blood pressure allows. -Also will reduce the Coreg dose. Nausea and vomiting -Probably due to portal gastropathy As needed ondansetron Monitor electrolytes VT prophylaxisLovenox CODE STATUSfull code TSH pending Covid Spouse at bedside both Yemeni speaking only. Fortunately their daughter is on the phone I was able to do video conversation with her patient needs cardioversion for her a flutter. I was trying to get more information on the etiology behind her cardiomyopathy specifically right heart failure. No recent . No recent viral symptoms patient does not drink alcohol. Symptoms were only acute of 2 to 3 weeks duration. Patient does not want to go through cardioversion. Had a conversation with Dr. Angel, who would try tertiary center. Meanwhile I will titrate the diuretics as her blood pressure allows. -Placed a consult for CHF specialist Dr. Adams. Possible obstructive sleep apnea/obesity hypoventilation syndrome -Probable etiology for her right heart failure in addition to a flutter. She could also have a pulmonary hypertension even the echo does not make any comment on that. She does have a mitral valve calcifications. -She would benefit with outpatient sleep study. We will also request our overnight nurses to monitor her for any sleep apnea symptoms. 29th likely she has chronic cardiomyopathy, which was overt and recently due to her A. fib/flutter she became symptomatic. I discussed with the patient regarding a transesophageal echo as well as cardioversion. Patient does not want any intervention at this point. She expressed to the same with the Dr. Angel. Her unwillingness limits any aggressive medical intervention at this point. We will diurese her as much as her blood pressure allows. If she changed her mind in the next day or 2 will request the on-call casting associate for transition esophageal echo and cardioversion. She also likely has hypothyroidism. -This contributes to some of her symptoms of anasarca. -She is not on any supplement at home -We will check free T4 and start her on low-dose thyroid supplement. Possible obstructive sleep apnea and obesity hypoventilation syndrome -Though proper sleep study has to be done as an outpatient , it is unclear whether she would follow through. -Will request dye room helper wagon washer for any recommendations including AutoPap, as she needs transesophageal echo as well as cardioversion to restore sinus rhythm to prevent the worsening of her cardiomyopathy. --And if necessary she may need ischemic work-up including cath. Morbid obesity It does not appear patient follows with health care routinely 30th = Her daughter name is Anne [phone] I explained that the risks and benefits of getting a transesophageal echo as wel l as cardioversion. The daughter said that she will discuss with the mom and the hopefully they will make the decision of whether to proceed with the procedure. I also explained that just getting diuretics is not going to be a good solution it would help temporarily but she would likely come back. Daughter expressed her understanding and will discuss with the mom to proceed further with the transesophageal echo as well as cardioversion. 31st s/p ANJANA and cardioversion, talk to the pt, over the google value analysis coordinator and daughter over the phone. -continue diuresis.
[2020-06-12] MEDS: Warfarin Sodium 10 MG TAB PO SCH (16:03)
[2020-06-12 18:30] LABS: Hemoglobin 10.4 g/dL (12.0-16.0); Platelet Count 143 thou/uL (130-400)
[2020-06-12] MEDS: Enoxaparin Sodium 120 MG/0.8 ML SYRINGE SC SCH (20:10)
[2020-06-13] MEDS: Furosemide 20 MG/2 ML VIAL SLOW IVP SCH ×2 (05:22→13:29)
[2020-06-13] MEDS: Levothyroxine Sodium 50 MCG TAB PO SCH (05:22)
[2020-06-13 05:24] LABS: INR-International Normal Ratio 1.4; Prothrombin Time 17.4 sec (12.0-14.7)
[2020-06-13 05:43] LABS: Anion Gap 15 mmol/L (10-20); BUN (Urea Nitrogen) 10 mg/dL (7.0-18.7); Calc. Creatinine Clearance 180 mL/min (70-130); Calcium 8.7 mg/dL (7.8-10.44); Carbon Dioxide 29 mmol/L (22-29); Chloride 95 mmol/L (98-107); Glucose 95 mg/dL (70-105); Magnesium 1.5 mg/dL (1.6-2.6); Sodium 136 mmol/L (136-145)
[2020-06-13 05:47] LABS: Potassium 2.8 mmol/L (3.5-5.1)
[2020-06-13] MEDS: Potassium Chloride 20 MEQ TAB PO SCH ×2 (06:25→09:51)
[2020-06-13] MEDS: Potassium Chloride 10 MEQ TAB PO SCH (09:45)
[2020-06-13] MEDS: Enoxaparin Sodium 120 MG/0.8 ML SYRINGE SC SCH ×2 (09:45→21:36)
--- NOTE | 2020-06-13 13:13 | PDOC.HOSPP ---
- Subjective Encounter Date: 06/13/20 Encounter Time: 10:30 Subjective: Patient appears well. Her weight seems to be quite wrong --she is somewhere around 240 pounds the weight of 233 today seems to be quite off. Is getting only low-dose Lasix. Both potassium and mag was quite low this morning. Even though she is on a potassium supplement. Her INR is subtherapeutic. - Objective Vital Signs & Weight: Vital Signs (12 hours) Temp Pulse Pulse Pulse Resp BP BP 06/13/20 11:57 103 H 88 134/77 126/84 06/13/20 08:00 97.8 F 81 18 06/13/20 03:45 98.6 F 85 19 BP Pulse Ox 06/13/20 11:57 06/13/20 08:00 127/74 96 06/13/20 03:45 120/67 97 Weight Weight 233 lb 14.4 oz I&O: 06/12/20 06/13/20 06/14/20 06:59 06:59 06:59 Intake Total 1060 992 Balance 1060 992 Result Diagrams: 06/12/20 18:20 06/13/20 04:44 Hospitalist ROS - Medication Medications: Active Medications Generic Name Dose Route Start Last Admin Trade Name Freq PRN Reason Stop Dose Admin Enoxaparin Sodium 110 mg 06/12/20 21:00 06/13/20 09:45 Enoxaparin Sodium 120 Mg/0.8 Ml Syringe SC 110 mg 0900,2100 MIKE Administration Furosemide 20 mg 06/10/20 06:00 06/13/20 05:22 Furosemide 20 Mg/2 Ml Vial SLOW IVP 20 mg 0600,1200 MIKE Administration Levothyroxine Sodium 50 mcg 06/11/20 06:00 06/13/20 05:22 Levothyroxine Sodium 50 Mcg Tab PO 50 mcg 0600 MIKE Administration Metolazone 2.5 mg 06/09/20 13:30 06/12/20 14:30 Metolazone 2.5 Mg Tab PO 2.5 mg 1330 MIKE Administration Potassium Chloride 10 meq 06/11/20 09:00 06/13/20 09:45 Potassium Chloride 10 Meq Tab PO 10 meq DAILY MIKE Administration Sodium Chloride 10 ml 06/11/20 09:00 06/13/20 09:46 Flush - Normal Saline 10 Ml Syringe IVF 10 ml Q12HR MIKE Administration Warfarin Sodium 10 mg 06/12/20 17:00 06/12/20 16:03 Warfarin Sodium 10 Mg Tab PO 10 mg 1700 MIKE Administration - Exam General Appearance: NAD, awake alert Eye: PERRL ENT: normocephalic atraumatic Neck: supple Heart: RRR, normal peripheral pulses Respiratory: CTAB, normal chest expansion Gastrointestinal: soft, normal bowel sounds Neurological: cranial nerve grossly intact, no focal deficits Musculoskeletal: generalized weakness Psychiatric: A&O x 3 Hosp A/P - Plan 39-year-old female patient with no significant past medical history presents with with nausea vomiting and generalized body swelling. Initial evaluation concerning for severe cardiomyopathy with moderate pericardi al effusion and ascites. Severe four-chamber cardiomyopathy -Probable acute diastolic CHF exacerbation -Echo showed low normal EF function; biatrial enlargement and severe right ventricle dilation aFlutter EP recommended transesophageal echo and cardioversion and and probably not a candidate for ablation at this time. -IV diuresis Moderate pericardial effusion CT however echo showed very trivial effusion Ascites Portal gastropathy Likely secondary to right heart failure -Since this is a right heart failure will be very careful with the diuresis. Her blood pressure is coming on the low normal side. I will titrate the diuretic dose as her blood pressure allows. -Also will reduce the Coreg dose. Nausea and vomiting -Probably due to portal gastropathy As needed ondansetron Monitor electrolytes VT prophylaxisLovenox CODE STATUSfull code TSH pending Covid Spouse at bedside both Thai speaking only. Fortunately their daughter is on the phone I was able to do video conversation with her patient needs cardioversion for her a flutter. I was trying to get more information on the etiology behind her cardiomyopathy specifically right heart failure. No recent . No recent viral symptoms patient does not drink alcohol. Symptoms were only acute of 2 to 3 weeks duration. Patient does not want to go through cardioversion. Had a conversation with Dr. Angel, who would try tertiary center. Meanwhile I will titrate the diuretics as her blood pressure allows. -Placed a consult for CHF specialist Dr. Adams. Possible obstructive sleep apnea/obesity hypoventilation syndrome -Probable etiology for her right heart failure in addition to a flutter. She could also have a pulmonary hypertension even the echo does not make any comment on that. She does have a mitral valve calcifications. -She would benefit with outpatient sleep study. We will also request our overnight nurses to monitor her for any sleep apnea symptoms. 29th likely she has chronic cardiomyopathy, which was overt and recently due to her A. fib/flutter she became symptomatic. I discussed with the patient regarding a transesophageal echo as well as cardioversion. Patient does not want any intervention at this point. She expressed to the same with the Dr. Angel. Her unwillingness limits any aggressive medical intervention at this point. We will diurese her as much as her blood pressure allows. If she changed her mind in the next day or 2 will request the on-call winery worker for transition esophageal echo and cardioversion. She also likely has hypothyroidism. -This contributes to some of her symptoms of anasarca. -She is not on any supplement at home -We will check free T4 and start her on low-dose thyroid supplement. Possible obstructive sleep apnea and obesity hypoventilation syndrome -Though proper sleep study has to be done as an outpatient , it is unclear whether she would follow through. -Will request gimp tacker solvent station attendant for any recommendations including AutoPap, as she needs transesophageal echo as well as cardioversion to restore sinus rhythm to prevent the worsening of her cardiomyopathy. --And if necessary she may need ischemic work-up including cath. Morbid obesity It does not appear patient follows with health care routinely 30th = Her daughter name is Anne [phone] I explained that the risks and benefits of getting a transesophageal echo as well as cardioversion. The daughter said that she will discuss with the mom and the hopefully they will make the decision of whether to proceed with the procedure. I also explained that just getting diuretics is not going to be a good solution it would help temporarily but she would likely come back. Daughter expressed her understanding and will discuss with the mom to proceed fu rther with the transesophageal echo as well as cardioversion. 31st s/p ANJANA and cardioversion, talk to the pt, over the google scale manager and daughter over the phone. -continue diuresis. 1st -INR still subtherapeutic-needs to be monitored. -She has hypokalemia as well as hypomagnesemia --that are replaced -electrolytes have to be followed. -Pending cardiology clearance for disposition.
[2020-06-13] MEDS ORDERED: Magnesium 2 GM/50 ML 2 GM in Premix Bag 1 BAG IVPB SCH (13:15)
[2020-06-13] MEDS: Metolazone 2.5 MG TAB PO SCH (13:29)
[2020-06-13] MEDS: Warfarin Sodium 10 MG TAB PO SCH (17:04)
[2020-06-14 05:02] LABS: INR-International Normal Ratio 1.9; Prothrombin Time 22.6 sec (12.0-14.7)
[2020-06-14 05:22] LABS: Anion Gap 16 mmol/L (10-20); BUN (Urea Nitrogen) 9 mg/dL (7.0-18.7); Calc. Creatinine Clearance 180 mL/min (70-130); Calcium 8.6 mg/dL (7.8-10.44); Carbon Dioxide 29 mmol/L (22-29); Chloride 93 mmol/L (98-107); Glucose 88 mg/dL (70-105); Sodium 135 mmol/L (136-145)
[2020-06-14 05:33] LABS: Potassium 2.6 mmol/L (3.5-5.1)
[2020-06-14] MEDS ORDERED: Potassium Chloride 20 MEQ TAB PO SCH ×3 (05:45→18:15)
[2020-06-14] MEDS: Furosemide 20 MG/2 ML VIAL SLOW IVP SCH ×2 (06:26→11:35)
[2020-06-14] MEDS: Levothyroxine Sodium 50 MCG TAB PO SCH (06:27)
[2020-06-14] MEDS: Enoxaparin Sodium 120 MG/0.8 ML SYRINGE SC SCH ×2 (08:42→21:08)
[2020-06-14] MEDS: Potassium Chloride 20 MEQ TAB PO SCH (08:42)
[2020-06-14 12:29] LABS: Anion Gap 15 mmol/L (10-20); BUN (Urea Nitrogen) 8 mg/dL (7.0-18.7); Calc. Creatinine Clearance 170 mL/min (70-130); Carbon Dioxide 30 mmol/L (22-29); Chloride 95 mmol/L (98-107); Glucose 100 mg/dL (70-105); Sodium 137 mmol/L (136-145)
[2020-06-14 12:37] LABS: Potassium 2.9 mmol/L (3.5-5.1)
[2020-06-14] MEDS: Metolazone 2.5 MG TAB PO SCH (13:21)
[2020-06-14] MEDS ORDERED: Spironolactone 25 MG TAB PO SCH (14:45)
[2020-06-14] MEDS ORDERED: Magnesium 2 GM/50 ML 2 GM in Premix Bag 1 BAG IVPB SCH (15:00)
[2020-06-14] MEDS: Warfarin Sodium 10 MG TAB PO SCH (16:02)
--- NOTE | 2020-06-14 16:54 | EKG ---
Test Reason : Blood Pressure : / mmHG Vent. Rate : 122 BPM Atrial Rate : 122 BPM P-R Int : 176 ms QRS Dur : 136 ms QT Int : 338 ms P-R-T Axes : 160 054 055 degrees QTc Int : 481 ms Unusual P axis, possible ectopic atrial tachycardia Right bundle branch block T wave abnormality, consider lateral ischemia Abnormal ECG Confirmed by CHANNING CHIN ([id number]), acquisition editor JAYLEN ROSENTHAL ([id number]) on 06/14/2020 4:54:17 PM Referred By: Confirmed By:CHANNING Chatterjee
--- NOTE | 2020-06-14 17:55 | PDOC.HOSPP ---
- Subjective Encounter Date: 06/14/20 Encounter Time: 11:00 Subjective: F/u: anasarca Patient is sitting up in bed. She denies chest pain or shortness of breath. She still has significant edema. Patient is unclear of what her weight was at home prior to coming to the hospital Discussed plan with the daughter - Objective Vital Signs & Weight: Vital Signs (12 hours) Temp Pulse Pulse Pulse Resp BP BP 06/14/20 15:59 98.5 F 82 16 06/14/20 12:00 97.6 F 80 16 06/14/20 10:07 101 H 87 131/74 119/76 06/14/20 07:48 06/14/20 07:41 97.4 F L 84 17 BP Pulse Ox 06/14/20 15:59 115/77 98 06/14/20 12:00 131/72 97 06/14/20 10:07 06/14/20 07:48 98 06/14/20 07:41 122/77 98 Weight Weight 227 lb I&O: 06/13/20 06/14/20 06/15/20 06:59 06:59 06:59 Intake Total 992 1170 Output Total 500 Balance 992 670 Result Diagrams: 06/12/20 18:20 06/14/20 12:01 Hospitalist ROS - Review of Systems Constitutional: denies: fever, chills - Medication Medications: Active Medications Generic Name Dose Route Start Last Admin Trade Name Freq PRN Reason Stop Dose Admin Enoxaparin Sodium 110 mg 06/12/20 21:00 06/14/20 08:42 Enoxaparin Sodium 120 Mg/0.8 Ml Syringe SC 110 mg 0900,2100 MIKE Administration Furosemide 20 mg 06/10/20 06:00 06/14/20 11:35 Furosemide 20 Mg/2 Ml Vial SLOW IVP 20 mg 0600,1200 MIKE Administration Levothyroxine Sodium 50 mcg 06/11/20 06:00 06/14/20 06:27 Levothyroxine Sodium 50 Mcg Tab PO 50 mcg 0600 MIKE Administration Potassium Chloride 20 meq 06/14/20 09:00 06/14/20 08:42 Potassium Chloride 20 Meq Tab PO 20 meq DAILY MIKE Administration Sodium Chloride 10 ml 06/11/20 09:00 06/14/20 08:42 Flush - Normal Saline 10 Ml Syringe IVF 10 ml Q12HR MIEK Administration Sodium Chloride 10 ml 06/11/20 06:30 06/14/20 06:26 Flush - Normal Saline 10 Ml Syringe IVF 10 ml PRN PRN Administration Saline Flush Warfarin Sodium 10 mg 06/12/20 17:00 06/14/20 16:02 Warfarin Sodium 10 Mg Tab PO 10 mg 1700 MIKE Administration - Exam General Appearance: NAD, awake alert Eye: PERRL, anicteric sclera ENT: normocephalic atraumatic, no oropharyngeal lesions Neck: no JVD Heart: RRR, no murmur, no gallops, no rubs Respiratory: CTAB, no wheezes, no rales, no ronchi Gastrointestinal: soft, non-tender, non-distended, normal bowel sounds Extremities: 2+ LE edema Skin: normal turgor, no lesions, no rashes Neurological: cranial nerve grossly intact, normal sensation to touch, no weakness Hosp A/P - Plan CTA chest: Cirrhosis, moderate pericardial effusion ECHO 06/08: Markedly enlarged right atrium size. Moderate MR. Severe TR. EF mildly depressed ECHO 06/12: severe TR, mild MR, enlarged RA Is a 39-year-old female who presented to the hospital with a 2-week history of nausea vomiting, weakness and generalized anasarca. She was found to have significant right heart dysfunction and atrial flutter. Status post c ardioversion on 06/12 Acute systolic heart failure (primarily right sided) secondary to severe tricuspid regurgitation - TSH high, but free T4 normal. Consider repeating as an outpatient. ECHO shows severe right sided heart failure. Pulmonary consulted, recommended outpatient sleep study - continue IV lasix 20 mg bid. Metolazone has been discontinued -spironolactone has been added by cardiology Atrial flutter-status post cardioversion 06/12 -She is not a candidate for an ablation. Consistent continue therapeutic L ovenox and warfarin 10 mg. INR 1.9, recheck tomorrow Hypokalemia - potassium 2.9, given 80 meq of potassium . Recheck tomorrow Hypomagnesemia - Mg 1.5, will give 2 mg magnesium Morbid obesity - BMI 44, needs weight loss as an outpatient
--- NOTE | 2020-06-14 19:12 | ULT ---
EXAM: Bilateral lower extremity venous Doppler HISTORY: Bilateral lower extremity edema. FINDINGS: Grayscale, color-flow, Doppler evaluation, spectral analysis of the bilateral lower extremity venous structures is performed with 2-D imaging. The bilateral common femoral, superficial femoral, popliteal, posterior tibial, proximal greater saphenous and profunda femoral veins are imaged. There is normal luminal compressibility, flow, and augmentation in the visualized deep venous structu res of the bilateral lower extremities. Mild symmetric pulsatile venous flow is present in the bilateral lower extremities. IMPRESSION: No evidence of a deep vein thrombosis in the visualized deep venous structures bilateral lower extrem ities.
[2020-06-15 05:13] LABS: INR-International Normal Ratio 3.8; Prothrombin Time 38.1 sec (12.0-14.7)
[2020-06-15 05:31] LABS: Anion Gap 12 mmol/L (10-20); BUN (Urea Nitrogen) 8 mg/dL (7.0-18.7); Calc. Creatinine Clearance 175 mL/min (70-130); Calcium 8.7 mg/dL (7.8-10.44); Carbon Dioxide 29 mmol/L (22-29); Chloride 96 mmol/L (98-107); Glucose 89 mg/dL (70-105); Magnesium 1.7 mg/dL (1.6-2.6); Potassium 3.3 mmol/L (3.5-5.1); Sodium 134 mmol/L (136-145)
[2020-06-15] MEDS: Furosemide 20 MG/2 ML VIAL SLOW IVP SCH ×2 (05:51→12:16)
[2020-06-15] MEDS: Levothyroxine Sodium 50 MCG TAB PO SCH (05:51)
[2020-06-15] MEDS ORDERED: Spironolactone 25 MG TAB PO SCH (08:00)
[2020-06-15] MEDS ORDERED: Magnesium Oxide 400 MG TAB PO SCH (09:00)
[2020-06-15] MEDS: Potassium Chloride 20 MEQ TAB PO SCH (09:18)
[2020-06-15] MEDS: Enoxaparin Sodium 120 MG/0.8 ML SYRINGE SC SCH (09:19)
[2020-06-15] MEDS ORDERED: Potassium Chloride 20 MEQ TAB PO SCH (10:00)
--- NOTE | 2020-06-15 11:16 | PDOC.DS.DS ---
Provider - Provider Date of Admission: 06/07/20 19:53 Date of Discharge: 06/15/20 Admitting Provider: Steve Quigley MD Consultations: Cardiology (Dr. Angel), Pulmonary (Dr. Rosario) Primary Care Physician: Unknown Course - Hospital Course Hospital Course: Discharge Diagnoses: 1. Acute systolic heart failure with pulmonary edema and pericardial effusion 2. Severe tricuspid regurgitation 3. Atrial flutter 4. Hypokalemia 5. Hypomagnesemia 6. Morbid obesity Brief HPI: This is a 39-year-old female patient with no significant past medical history who presented with a 2-week history of intermittent nausea, vomiting and weakness. She also had progressive edema. She was admitted for generalized anasarca and pulmonary edema Hospital Course: The patient had a CTA chest that showed no PE, and a CT abdomen which showed findings of cirrhosis. Dopplers were negative for DVT. She was diuresed with IV lasix . Records here show that she lost almost 40 pounds, but I believe this is inaccurate. She did not require oxygen while in the hospital. ECHO showed severe tricuspid regurgitation, mildly depressed EF, and an enlarged right atrium and a small pericardial effusion on 06/08 and 06/12. She was found to have atrial flutter, therefore EP and cardiology were consulted. SHe underwent cardioversion on 06/12. She was started on anticoagulation with warfarin 10 mg. Her INR was 3.8 on discharge, so she was advised to hold her warfarin for two days and get an INR check in two days with the coumadin clinic. She was also started on spironolactone for her her heart failure. Lisinopril and coreg will be held off on starting for now per cardiology and she will follow up with cardiology as an outpatient for starting these medications. Hypokalemia/Hypomagnesemia: She did have some hypokalemia and hypomagnesemia in the hospital. Potassium was 3.3 and magnesium 1.7 at the time of discharge. She was given additional supplementation on discharge with instructions to recheck these in a week. Morbid obesity: BMI 44, needs weight loss as an outpatient Hypothyroidism: TSH was 8 here. Free T4 normal. Continue levothyroxine Pertinent Studies: Chest X ray 06/07: severe cardiomegaly with pulmonary edema Venogram 06/14: no evidence of DVT CT Abdomen 06/07: severe cardiomegaly with severe four chamber dilation. Moderate volume ascites. Diffuse dilation of hepatic veins. Anasarca. Pericardi al effusion CTA chest 06/08: Cirrhosis, moderate pericardial effusion ECHO 06/08: Markedly enlarged right atrium size. Moderate MR. Severe TR. EF mildly depressed ECHO 06/12: severe TR, mild MR, enlarged RA Resuscitation Status: 06/07/20 20:19 Resuscitation Status Routine Resuscitation Status: FULL: Full Resuscitation - Labs Lab Results: 06/12/20 18:20 06/15/20 04:35 Abnormal Lab Results - Last 48 hrs 06/14/20 04:20: PT 22.6 H 06/14/20 04:20: Sodium 135 L, Potassium 2.6 L*, Chloride 93 L 06/14/20 12:01: Potassium 2.9 L*, Chloride 95 L, Carbon Dioxide 30 H 06/15/20 04:35: Sodium 134 L, Potassium 3.3 L, Chloride 96 L 06/15/20 04:35: PT 38.1 H - Physical Exam Vitals: Vital Signs (12 hours) Temp Pulse Pulse Pulse Resp BP BP 06/15/20 09:37 102 H 93 128/73 120/74 06/15/20 07:47 97.5 F L 87 18 06/15/20 04:00 98.5 F 85 20 06/15/20 00:00 98.5 F 85 20 BP BP Pulse Ox 06/15/20 09:37 06/15/20 07:47 118/76 98 06/15/20 04:00 101/58 L 98 06/15/20 00:00 116/70 98 Weight Weight 204 lb 11.2 oz Physical Exam: The patient was seen and examined on the day of discharge. General Appearance: NAD, awake alert. Morbidly obese Eye: PERRL, anicteric sclera ENT: normocephalic atraumatic, no oropharyngeal lesions Neck: no JVD Heart: RRR, no murmur, no gallops, no rubs Respiratory: CTAB, no wheezes, no rales, no ronchi Gastrointestinal: soft, non-tender, non-distended, normal bowel sounds Extremities: 2+ LE edema Skin: normal turgor, no lesions, no rashes Neurological: cranial nerve grossly intact, normal sensation to touch, no weakness Problem - Discharge Plan Plan of Treatment: Follow up with Dr. Angel in a week with repeat BMP. Consider outpatient testing for sleep apnea. Hold warfarin for two days and get INR check in coumadin clinic. - Time spent with Patient (mins): 30 Plan - Discharge Medications Prescriptions: Furosemide 40 mg PO BID #60 tablet Potassium Chloride [K-Dur] 20 meq PO DAILY #7 tab Magnesium Oxide 400 mg PO DAILY #4 tab Spironolactone 50 mg PO DAILY #60 tablet Levothyroxine Sodium [Synthroid] 50 mcg PO 0600 30 Days #40 tab Warfarin Sodium 5 mg PO DAILY #30 tablet Home Medications: Medication Instructions Recorded Confirmed Type Levothyroxine Sodium [Synthroid] 50 mcg PO 0600 30 Days #40 tab 06/13/20 Rx Furosemide 40 mg PO BID #60 tablet 06/15/20 Rx Magnesium Oxide 400 mg PO DAILY #4 tab 06/15/20 Rx Potassium Chloride [K-Dur] 20 meq PO DAILY #7 tab 06/15/20 Rx Spironolactone 50 mg PO DAILY #60 tablet 06/15/20 Rx Warfarin Sodium 5 mg PO DAILY #30 tablet 06/15/20 Rx Allergies: No Known Drug Allergies Allergy (Verified 06/07/20 21:35) - Discharge Instructions Activity:: Activity as Tolerated Nourishment:: Heart Healthy Diet - Follow up Plan Referrals: [facility] - [facility] [Outside] - 06/16/20 9:00 am () Unknown,Unknown [Primary Care Provider] - Disposition: HOME Quality - Care Measures CORE MEASURES:: HF - Stroke/TIA Did you prescribe antithrombotic therapy?: Yes Did you prescribe anticoagulant for A Fib/Flutter?: Yes Did you prescribe a statin medication?: No Specify reason for no DC statin medication: Treatment not indicated
[2020-06-15 12:10] VITALS: BP 111/75; TEMP 98.3
[2020-06-15] MEDS ORDERED: Enoxaparin Sodium 120 MG/0.8 ML SYRINGE SC SCH (21:00)
--- NOTE | 2020-06-15 22:39 | EKG ---
Test Reason : POST CARDIOVERSION Blood Pressure : / mmHG Vent. Rate : 086 BPM Atrial Rate : 086 BPM P-R Int : 188 ms QRS Dur : 156 ms QT Int : 440 ms P-R-T Axes : 009 030 104 degrees QTc Int : 526 ms Normal sinus rhythm Possible Left atrial enlargement Right bundle branch block Abnormal ECG When compared with ECG of 07-JUN-2020 15:48, (Unconfirmed) Sinus rhythm has replaced Ectopic atrial rhythm Confirmed by Selene WILSON ([id number]) on 06/15/2020 10:39:08 PM Referred By: HERIBERTO Confirmed By:Selene WILSON
[2020-06-16] MEDS ORDERED: Furosemide 20 MG/2 ML VIAL SLOW IVP SCH (06:00)
[2020-06-16] MEDS ORDERED: Levothyroxine Sodium 50 MCG TAB PO SCH (06:00)
[2020-06-16] MEDS ORDERED: Spironolactone 25 MG TAB PO SCH (08:00)
[2020-06-16] MEDS ORDERED: Magnesium Oxide 400 MG TAB PO SCH (09:00)
[2020-06-16] MEDS ORDERED: Potassium Chloride 20 MEQ TAB PO SCH (09:00)
== END 2020-06-15 15:30 | disposition home or self-care (01) | DRG 306 ==
LOC: ERS 15:15 → 2NO 19:53 → UNDODISIN 06-15 12:22
PROVIDERS: ADMIT Student in an Organized Health Care Education/Training Program; ATTEND Internal Medicine
PROC: B24BZZ4 Ultrasonography of Heart with Aorta, Transesophageal (ICD-10-PCS; principal; 2020-06-12)
PROC: 5A2204Z Restoration of Cardiac Rhythm, Single (ICD-10-PCS; 2020-06-12)
DX: I07.1 Rheumatic tricuspid insufficiency (principal); I50.21 Acute systolic (congestive) heart failure; I42.8 Other cardiomyopathies; I31.3 Pericardial effusion (noninflammatory); I48.3 Typical atrial flutter; K76.6 Portal hypertension; Z68.42 Body mass index [BMI] 45.0-49.9, adult; E66.2 Morbid (severe) obesity with alveolar hypoventilation; R18.8 Other ascites; Z20.822 Contact with and (suspected) exposure to COVID-19; K31.89 Other diseases of stomach and duodenum; I48.91 Unspecified atrial fibrillation; E03.9 Hypothyroidism, unspecified; K74.60 Unspecified cirrhosis of liver; E87.6 Hypokalemia; E83.42 Hypomagnesemia; I50.810 Right heart failure, unspecified
CPT/HCPCS: 36415; 71045; 71275; 74177; 80048; 80053; 81003; 81015; 82010; 83605; 83690; 83735; 83880; 84439; 84443; 84703; 85025; 85610; 87635; 92960; 93005; 93010; 93306; 93312; 93798; 93970; 97139; J1650; J1940; J2704; J3475; Q9967; U0003

== ENCOUNTER 2020-06-20 14:37 | Emergency (ER) | payer SELFPAY ==
[2020-06-20 15:36] LABS: #Eosinphils 0.1 thou/uL (0.0-0.7); #Lymphocytes 0.9 thou/uL (1.20-3.40); #Monocytes 0.4 thou/uL (0.11-0.59); #Neutrophils 3.1 thou/uL (1.40-6.50); %Basophils 1.1 % (0.0-1.0); %Eosinophils 3.1 % (0.0-10.0); %Lymphocytes 18.7 % (21.0-51.0); %Monocytes 9.6 % (0.0-10.0); %Neutrophils 67.6 % (42.0-75.0); Mean Corpuscular HGB CONC 31.9 g/dL (32.0-36.0); Mean Corpuscular Hemoglobin 24.7 pg (27.0-31.0); Mean Corpuscular Volume 77.4 fL (78.0-98.0); Mean Platelet Volume 9.5 fL (7.4-10.4); Platelet Count 190 thou/uL (130-400); RBC Distribution Width 15.5 % (11.5-14.5); Red Blood Cell (RBC) Count 4.86 mill/uL (4.20-5.40); White Blood Cell (WBC) Count 4.6 thou/uL (4.8-10.8)
[2020-06-20 15:39] LABS: INR-International Normal Ratio 1.2; PTT 39.2 sec (22.9-36.1); Prothrombin Time 15.7 sec (12.0-14.7)
[2020-06-20 15:59] LABS: ALT (SGPT) 20 U/L (8-55); AST (SGOT) 43 U/L (5-34); Albumin 4.4 g/dL (3.5-5.0); Alkaline Phosphatase 182 U/L (40-110); Anion Gap 16 mmol/L (10-20); BUN (Urea Nitrogen) 11 mg/dL (7.0-18.7); Bilirubin, Total 2.8 mg/dL (0.2-1.2); Calc. Creatinine Clearance 0 mL/min (70-130); Carbon Dioxide 21 mmol/L (22-29); Chloride 103 mmol/L (98-107); Globulin 4.6 g/dL (2.4-3.5); Glucose 133 mg/dL (70-105); Potassium 4.1 mmol/L (3.5-5.1); Sodium 136 mmol/L (136-145)
== END 2020-06-20 16:34 | disposition home or self-care (01) ==
LOC: ERS 14:37
DX: R79.1 Abnormal coagulation profile (principal)
CPT/HCPCS: 36415; 80053; 85025; 85610; 85730; 93005

== ENCOUNTER 2020-07-08 12:48 | Emergency (ER) | payer SELFPAY ==
[2020-07-08 13:29] LABS: INR-International Normal Ratio 1.1; PTT 31.2 sec (22.9-36.1); Prothrombin Time 14.5 sec (12.0-14.7)
== END 2020-07-08 14:12 | disposition home or self-care (01) ==
LOC: ERS 12:48
DX: I48.92 Unspecified atrial flutter (principal); Z79.899 Other long term (current) drug therapy; Z79.01 Long term (current) use of anticoagulants
CPT/HCPCS: 36415; 85610; 85730; 99282

== ENCOUNTER 2020-09-04 13:20 | Emergency (ER) | payer SELFPAY ==
[2020-09-04 14:10] LABS: #Basophils 0.1 thou/uL (0.0-0.2); #Eosinphils 0.1 thou/uL (0.0-0.7); #Monocytes 0.5 thou/uL (0.11-0.59); #Neutrophils 5.4 thou/uL (1.40-6.50); %Basophils 0.9 % (0.0-1.0); %Eosinophils 0.9 % (0.0-10.0); %Lymphocytes 13.6 % (21.0-51.0); %Monocytes 7.6 % (0.0-10.0); Hemoglobin 8.5 g/dL (12.0-16.0); Mean Corpuscular HGB CONC 31.2 g/dL (32.0-36.0); Mean Corpuscular Hemoglobin 23.4 pg (27.0-31.0); Mean Corpuscular Volume 75.2 fL (78.0-98.0); Mean Platelet Volume 9.4 fL (7.4-10.4); Platelet Count 229 thou/uL (130-400); RBC Distribution Width 18.9 % (11.5-14.5); Red Blood Cell (RBC) Count 3.62 mill/uL (4.20-5.40)
[2020-09-04 14:34] LABS: ALT (SGPT) 8 U/L (8-55); AST (SGOT) 19 U/L (5-34); Albumin 4.5 g/dL (3.5-5.0); Alkaline Phosphatase 136 U/L (40-110); Anion Gap 15 mmol/L (10-20); BUN (Urea Nitrogen) 13 mg/dL (7.0-18.7); Bilirubin, Total 1.6 mg/dL (0.2-1.2); Calc. Creatinine Clearance 0 mL/min (70-130); Calcium 8.8 mg/dL (7.8-10.44); Carbon Dioxide 21 mmol/L (22-29); Chloride 105 mmol/L (98-107); Globulin 3.3 g/dL (2.4-3.5); Glucose 143 mg/dL (70-105); Lipase 29 U/L (8-78); Potassium 4.3 mmol/L (3.5-5.1); Protein, Total 7.8 g/dL (6.0-8.3); Sodium 137 mmol/L (136-145)
[2020-09-04 18:20] LABS: Troponin I Less than 0.010 ng/mL (< 0.028)
[2020-09-04] MEDS ORDERED: HYDROcodone/Acetaminophen 5/325 mg Tablet ONE (19:01)
== END 2020-09-04 19:05 | disposition home or self-care (01) ==
LOC: ERS 13:20
DX: R07.9 Chest pain, unspecified (principal); I50.9 Heart failure, unspecified; Z79.899 Other long term (current) drug therapy
CPT/HCPCS: 36415; 71045; 80053; 83690; 84484; 85025; 85379; 93005; 94760

== ENCOUNTER 2021-10-30 20:24 | Inpatient (IN) | payer MEDICAID, SELFPAY ==
[2021-10-30 21:34] LABS: ALT (SGPT) Less than 7 U/L (8-55); AST (SGOT) 23 U/L (5-34); Albumin 3.3 g/dL (3.5-5.0); Alkaline Phosphatase 151 U/L (40-110); Anion Gap 12 mmol/L (10-20); BUN (Urea Nitrogen) 8 mg/dL (7.0-18.7); Bilirubin, Total 3.2 mg/dL (0.2-1.2); Calc. Creatinine Clearance 0 mL/min (70-130); Calcium 8.3 mg/dL (7.8-10.44); Carbon Dioxide 23 mmol/L (22-29); Chloride 101 mmol/L (98-107); Globulin 3.7 g/dL (2.4-3.5); Glucose 149 mg/dL (70-105); Potassium 3.3 mmol/L (3.5-5.1); Sodium 133 mmol/L (136-145)
[2021-10-30 21:59] LABS: Hemoglobin 8.6 g/dL (12.0-16.0); Mean Corpuscular Hemoglobin 23.2 pg (27.0-31.0); Mean Corpuscular Volume 74.7 fL (78.0-98.0); Mean Platelet Volume 8.4 fL (7.4-10.4); Platelet Count 232 thou/uL (130-400); RBC Distribution Width 17.3 % (11.5-14.5); Red Blood Cell (RBC) Count 3.72 mill/uL (4.20-5.40); White Blood Cell (WBC) Count 4.7 thou/uL (4.8-10.8)
[2021-10-30 22:00] LABS: Anisocytosis SLIGHT = 6-15 cells (100X) (0-5/hpf); Band 10 % (5-11); Eosinophils 1 % (0-10); Lymphocytes 16 % (21-51); MDiff Complete? YES; Monocytes 7 % (0-10); Neutrophil 66 % (42-75)
[2021-10-30 22:24] LABS: INR-International Normal Ratio 1.4
[2021-10-30 22:25] LABS: PTT 38.8 sec (22.9-36.1)
[2021-10-30] MEDS ORDERED: Lidocaine 1% PF 5 ML VIAL ONE (22:26)
[2021-10-31] MEDS ORDERED: Ondansetron PF 4 MG/2 ML Vial IVP PRN (01:28)
[2021-10-31] MEDS ORDERED: Acetaminophen 325 MG TAB PO PRN (01:28)
[2021-10-31] MEDS ORDERED: Magnesium Oxide 400 MG TAB PO SCH (01:30)
[2021-10-31] MEDS ORDERED: Furosemide 40 MG/4 ML VIAL ONE (01:32)
[2021-10-31] MEDS ORDERED: Potassium Chloride 20 MEQ TAB ONE (01:32)
[2021-10-31 02:18] LABS: BF Color Yellow; Body Fluid Source Paracentesis Fluid; Clarity Hazy (Clear); RBC Count-Automated (BF) 878 /cu.mm; Tube # 1; WBC/Nucleated-Auto (BF) 187 /cu.mm
[2021-10-31 02:38] VITALS: BMI 48.4
[2021-10-31 03:06] LABS: BF Segmented Neutrophils 50 %; Cell Count Non Hematic 20 %; Lymphocytes 30 %
[2021-10-31 05:21] LABS: Anion Gap 16 mmol/L (10-20); BUN (Urea Nitrogen) 9 mg/dL (7.0-18.7); Calc. Creatinine Clearance 214 mL/min (70-130); Calcium 8.3 mg/dL (7.8-10.44); Carbon Dioxide 21 mmol/L (22-29); Chloride 102 mmol/L (98-107); Glucose 112 mg/dL (70-105); Magnesium 1.9 mg/dL (1.6-2.6); Potassium 3.8 mmol/L (3.5-5.1); Sodium 135 mmol/L (136-145)
[2021-10-31 06:31] LABS: Hemoglobin 8.6 g/dL (12.0-16.0); Mean Corpuscular Hemoglobin 23.1 pg (27.0-31.0); Mean Corpuscular Volume 74.7 fL (78.0-98.0); Mean Platelet Volume 8.5 fL (7.4-10.4); Platelet Count 209 thou/uL (130-400); RBC Distribution Width 17.1 % (11.5-14.5); Red Blood Cell (RBC) Count 3.72 mill/uL (4.20-5.40); White Blood Cell (WBC) Count 4.9 thou/uL (4.8-10.8)
[2021-10-31 06:32] LABS: Band 5 % (5-11); Eosinophils 2 % (0-10); Lymphocytes 11 % (21-51); MDiff Complete? YES; Monocytes 5 % (0-10); Neutrophil 77 % (42-75)
[2021-10-31] MEDS ORDERED: Levothyroxine Sodium 100 MCG TAB PO SCH (07:30)
[2021-10-31] MEDS: Spironolactone 25 MG TAB PO SCH ×2 (07:36→16:58)
[2021-10-31] MEDS: Furosemide 40 MG/4 ML VIAL SLOW IVP SCH (15:07)
[2021-10-31 16:49] LABS: SARS-CoV-2 PCR by NAA Not Detected (NotDetected)
[2021-11-01 05:14] LABS: #Eosinphils 0.2 thou/uL (0.0-0.7); #Lymphocytes 0.6 thou/uL (1.20-3.40); #Monocytes 0.5 thou/uL (0.11-0.59); #Neutrophils 2.4 thou/uL (1.40-6.50); %Lymphocytes 16.1 % (21.0-51.0); %Monocytes 13.4 % (0.0-10.0); %Neutrophils 64.6 % (42.0-75.0); Hemoglobin 8.5 g/dL (12.0-16.0); Mean Corpuscular HGB CONC 30.3 g/dL (32.0-36.0); Mean Corpuscular Hemoglobin 23.1 pg (27.0-31.0); Mean Platelet Volume 8.5 fL (7.4-10.4); Platelet Count 195 thou/uL (130-400); RBC Distribution Width 17.2 % (11.5-14.5); White Blood Cell (WBC) Count 3.7 thou/uL (4.8-10.8)
[2021-11-01 05:37] LABS: ALT (SGPT) 7 U/L (8-55); AST (SGOT) 22 U/L (5-34); Albumin 3.3 g/dL (3.5-5.0); Alkaline Phosphatase 144 U/L (40-110); Bilirubin, Direct 2.1 mg/dL (0.1-0.3); Bilirubin, Total 3.8 mg/dL (0.2-1.2); Iron 29 ug/dL (50-170); Iron Binding Capacity, Total 310 mcg/dL (265-497)
[2021-11-01 05:39] LABS: Anion Gap 13 mmol/L (10-20); BUN (Urea Nitrogen) 8 mg/dL (7.0-18.7); Calc. Creatinine Clearance 201 mL/min (70-130); Calcium 8.6 mg/dL (7.8-10.44); Carbon Dioxide 22 mmol/L (22-29); Chloride 99 mmol/L (98-107); Glucose 83 mg/dL (70-105); Magnesium 1.9 mg/dL (1.6-2.6); Potassium 3.6 mmol/L (3.5-5.1); Sodium 130 mmol/L (136-145)
[2021-11-01 05:53] LABS: Ferritin 42.62 ng/mL (10-291)
[2021-11-01] MEDS: Furosemide 40 MG/4 ML VIAL SLOW IVP SCH (05:57)
[2021-11-01] MEDS: Levothyroxine Sodium 100 MCG TAB PO SCH (05:57)
[2021-11-01 06:06] LABS: HBSAB Concentration Less than 8.00 mIU/mL; HBSAg Index 0.21 S/CO (0-0.99); Hep B Core Total Ab Non-Reactive (NonReactive); Hep B Core Total Index 0.15 S/CO (0-0.79); Hep B Surf AB Non-Reactive (NonReactive); Hep B Surf Ag Non-Reactive S/CO (NonReactive); Hep C IgG Ab Non-Reactive (NonReactive); Hep C Index 0.14 S/CO (0-0.79)
[2021-11-01] MEDS: Spironolactone 25 MG TAB PO SCH (08:28)
[2021-11-01] MEDS: Furosemide 40 MG TAB PO SCH (20:48)
[2021-11-02 05:22] LABS: Anion Gap 13 mmol/L (10-20); BUN (Urea Nitrogen) 7 mg/dL (7.0-18.7); Calc. Creatinine Clearance 208 mL/min (70-130); Calcium 8.4 mg/dL (7.8-10.44); Carbon Dioxide 24 mmol/L (22-29); Chloride 100 mmol/L (98-107); Glucose 89 mg/dL (70-105); Magnesium 1.8 mg/dL (1.6-2.6); Potassium 3.6 mmol/L (3.5-5.1); Sodium 133 mmol/L (136-145)
[2021-11-02] MEDS: Levothyroxine Sodium 100 MCG TAB PO SCH (06:04)
[2021-11-02 06:48] LABS: Hemoglobin 8.7 g/dL (12.0-16.0); Mean Corpuscular HGB CONC 30.7 g/dL (32.0-36.0); Mean Corpuscular Hemoglobin 23.3 pg (27.0-31.0); Mean Corpuscular Volume 75.8 fL (78.0-98.0); Mean Platelet Volume 8.3 fL (7.4-10.4); Platelet Count 199 thou/uL (130-400); RBC Distribution Width 17.5 % (11.5-14.5); Red Blood Cell (RBC) Count 3.75 mill/uL (4.20-5.40)
[2021-11-02] MEDS ORDERED: Lidocaine 1% PF 5 ML VIAL ONE (07:55)
[2021-11-02] MEDS ORDERED: Sodium Bicarbonate 2.5 MEQ/5 ML VIAL ONE (07:55)
[2021-11-02 09:22] LABS: Band 3 % (5-11); Eosinophils 6 % (0-10); Hypochromia SLIGHT = 6-15 cells (100X) (0-5/hpf); Lymphocytes 15 % (21-51); MDiff Complete? YES; Microcytosis SLIGHT = 6-15 cells (100X) (0-5/hpf); Monocytes 14 % (0-10); Neutrophil 62 % (42-75); Platelet Morphology Comment Appears Adequate; Polychromasia SLIGHT = 2-3 cells (100X) (0-2/hpf)
[2021-11-02] MEDS: Furosemide 40 MG TAB PO SCH ×2 (10:31→20:45)
[2021-11-02] MEDS: Spironolactone 100 MG TAB PO SCH (10:31)
[2021-11-02 13:22] LABS: RBC Count-Automated (BF) 2906 /cu.mm; WBC/Nucleated-Auto (BF) 103 /cu.mm
[2021-11-02 13:50] LABS: BF Color Yellow; Body Fluid Source Ascites Body Fluid; Clarity Clear (Clear); Tube # EDTA
[2021-11-02 13:52] LABS: BF Segmented Neutrophils 11 %; Cell Count Non Hematic 37 %; Lymphocytes 52 %
[2021-11-02 16:13] LABS: Alpha-1-Antitrypsin 272 mg/dL (100-188)
[2021-11-03] MEDS: Levothyroxine Sodium 100 MCG TAB PO SCH (05:35)
[2021-11-03] MEDS: Spironolactone 100 MG TAB PO SCH (10:28)
[2021-11-03] MEDS: Furosemide 40 MG TAB PO SCH ×2 (10:28→20:42)
[2021-11-04 05:13] LABS: Hemoglobin 9.2 g/dL (12.0-16.0); Mean Corpuscular HGB CONC 29.3 g/dL (32.0-36.0); Mean Corpuscular Hemoglobin 22.9 pg (27.0-31.0); Mean Corpuscular Volume 78.2 fL (78.0-98.0); Mean Platelet Volume 9.4 fL (7.4-10.4); Platelet Count 203 thou/uL (130-400); RBC Distribution Width 17.8 % (11.5-14.5); Red Blood Cell (RBC) Count 4.02 mill/uL (4.20-5.40); White Blood Cell (WBC) Count 3.8 thou/uL (4.8-10.8)
[2021-11-04 05:46] LABS: Anion Gap 18 mmol/L (10-20); BUN (Urea Nitrogen) 8 mg/dL (7.0-18.7); Calc. Creatinine Clearance 172 mL/min (70-130); Calcium 8.7 mg/dL (7.8-10.44); Carbon Dioxide 17 mmol/L (22-29); Chloride 102 mmol/L (98-107); Glucose 89 mg/dL (70-105); Potassium 4.6 mmol/L (3.5-5.1); Sodium 132 mmol/L (136-145)
[2021-11-04] MEDS ORDERED: Levothyroxine Sodium 75 MCG TAB PO SCH (06:00)
[2021-11-04 06:38] LABS: Anisocytosis SLIGHT = 6-15 cells (100X) (0-5/hpf); Band 1 % (5-11); Eosinophils 2 % (0-10); Lymphocytes 22 % (21-51); MDiff Complete? YES; Monocytes 9 % (0-10); Neutrophil 65 % (42-75)
[2021-11-04] MEDS: Spironolactone 100 MG TAB PO SCH (09:28)
[2021-11-04] MEDS: Furosemide 40 MG TAB PO SCH (09:28)
[2021-11-04 11:32] VITALS: BP 107/65; TEMP 97.8
[2021-11-06 15:23] LABS: ANA Symphony (Qualitative) Negative (Negative); ANA Symphony (Quantitative) 0.2 Ratio (< 0.7 Negative); EliA Vaculitis New Method **** NEW METHOD ****; Mitochondrial Ab 0.9 U/mL (<4 Negative); dsDNA IgG Antibody 1.9 IU/mL (<10 Negative)
== END 2021-11-04 13:58 | disposition home or self-care (01) | DRG 432 ==
LOC: ERS 20:24 → 2SW 10-31 01:28 → OBSVTOIN 11-02 10:24 → 2SW 11-03 12:16
PROVIDERS: ADMIT Emergency Medicine; ATTEND Emergency Medicine
PROC: 0W9G3ZX Drainage of Peritoneal Cavity, Percutaneous Approach, Diagnostic (ICD-10-PCS; principal; 2021-11-02)
PROC: 0W9G3ZZ Drainage of Peritoneal Cavity, Percutaneous Approach (ICD-10-PCS; 2021-11-02)
DX: K74.60 Unspecified cirrhosis of liver (principal); Q24.2 Cor triatriatum; K76.6 Portal hypertension; I48.92 Unspecified atrial flutter; R18.8 Other ascites; I31.3 Pericardial effusion (noninflammatory); I85.10 Secondary esophageal varices without bleeding; Z68.41 Body mass index [BMI] 40.0-44.9, adult; I50.813 Acute on chronic right heart failure; Z23 Encounter for immunization; Z20.822 Contact with and (suspected) exposure to COVID-19; I07.1 Rheumatic tricuspid insufficiency; E03.9 Hypothyroidism, unspecified; E66.01 Morbid (severe) obesity due to excess calories; I11.0 Hypertensive heart disease with heart failure; D64.9 Anemia, unspecified; Z79.890 Hormone replacement therapy; Z79.899 Other long term (current) drug therapy
CPT/HCPCS: 10060; 36415; 49082; 49083; 71045; 76705; 80048; 80053; 80076; 82042; 82103; 82140; 82390; 82728; 83516; 83540; 83550; 83605; 83735; 83880; 84157; 84439; 84443; 85025; 85060; 85610; 85730; 86015; 86038; 86225; 86704; 86706; 86803; 87070; 87205; 87340; 89051; 93005; 93306; 96374; 96376; G0378; J1940; U0003; U0005

== ENCOUNTER 2022-01-14 10:45 | Inpatient (IN) | payer MEDICAID, SELFPAY ==
[2022-01-14 11:40] LABS: #Eosinphils 0.2 thou/uL (0.0-0.7); #Lymphocytes 0.8 thou/uL (1.20-3.40); #Monocytes 1.5 thou/uL (0.11-0.59); #Neutrophils 9.3 thou/uL (1.40-6.50); %Basophils 0.4 % (0.0-1.0); %Eosinophils 1.4 % (0.0-10.0); %Lymphocytes 6.7 % (21.0-51.0); %Monocytes 12.5 % (0.0-10.0); %Neutrophils 79.1 % (42.0-75.0); Hemoglobin 8.9 g/dL (12.0-16.0); Mean Corpuscular Hemoglobin 24.1 pg (27.0-31.0); Mean Corpuscular Volume 77.9 fL (78.0-98.0); Mean Platelet Volume 8.1 fL (7.4-10.4); Platelet Count 344 thou/uL (130-400); RBC Distribution Width 18.5 % (11.5-14.5); White Blood Cell (WBC) Count 11.7 thou/uL (4.8-10.8)
[2022-01-14] MEDS ORDERED: Furosemide 40 MG/4 ML VIAL ONE (12:01)
[2022-01-14 12:05] LABS: ALT (SGPT) 29 U/L (8-55); AST (SGOT) 71 U/L (5-34); Albumin 3.2 g/dL (3.5-5.0); Alkaline Phosphatase 263 U/L (40-110); Anion Gap 17 mmol/L (10-20); BUN (Urea Nitrogen) 32 mg/dL (7.0-18.7); Bilirubin, Total 4.7 mg/dL (0.2-1.2); Calc. Creatinine Clearance 0 mL/min (70-130); Calcium 8.5 mg/dL (7.8-10.44); Carbon Dioxide 18 mmol/L (22-29); Chloride 95 mmol/L (98-107); Estimated GFR 48; Globulin 3.6 g/dL (2.4-3.5); Glucose 105 mg/dL (70-105); Potassium 4.5 mmol/L (3.5-5.1); Protein, Total 6.8 g/dL (6.0-8.3); Sodium 125 mmol/L (136-145)
[2022-01-14] MEDS ORDERED: Furosemide 40 MG/4 ML VIAL SLOW IVP SCH (15:15)
[2022-01-14 15:32] VITALS: BMI 42.6
[2022-01-14] MEDS ORDERED: Spironolactone 100 MG TAB PO SCH (17:00)
[2022-01-14] MEDS ORDERED: Ondansetron PF 4 MG/2 ML Vial IVP PRN (17:53)
[2022-01-14] MEDS ORDERED: Acetaminophen 325 MG TAB PO PRN (17:54)
[2022-01-14] MEDS: Heparin 5,000 UNITS/ML VIAL SC SCH (21:33)
[2022-01-15 04:51] LABS: #Basophils 0.1 thou/uL (0.0-0.2); #Eosinphils 0.1 thou/uL (0.0-0.7); #Lymphocytes 0.6 thou/uL (1.20-3.40); #Monocytes 1.1 thou/uL (0.11-0.59); #Neutrophils 7.2 thou/uL (1.40-6.50); %Basophils 0.9 % (0.0-1.0); %Eosinophils 1.4 % (0.0-10.0); %Lymphocytes 6.2 % (21.0-51.0); %Monocytes 12.2 % (0.0-10.0); %Neutrophils 79.4 % (42.0-75.0); Hemoglobin 8.6 g/dL (12.0-16.0); Mean Corpuscular HGB CONC 30.5 g/dL (32.0-36.0); Mean Corpuscular Hemoglobin 23.7 pg (27.0-31.0); Mean Corpuscular Volume 77.8 fL (78.0-98.0); Platelet Count 329 thou/uL (130-400); RBC Distribution Width 18.4 % (11.5-14.5); Red Blood Cell (RBC) Count 3.64 mill/uL (4.20-5.40); White Blood Cell (WBC) Count 9.1 thou/uL (4.8-10.8)
[2022-01-15 05:12] LABS: ALT (SGPT) 24 U/L (8-55); AST (SGOT) 47 U/L (5-34); Albumin 3.2 g/dL (3.5-5.0); Alkaline Phosphatase 262 U/L (40-110); Anion Gap 17 mmol/L (10-20); BUN (Urea Nitrogen) 33 mg/dL (7.0-18.7); Bilirubin, Total 3.9 mg/dL (0.2-1.2); Calc. Creatinine Clearance 83 mL/min (70-130); Calcium 8.4 mg/dL (7.8-10.44); Carbon Dioxide 19 mmol/L (22-29); Chloride 95 mmol/L (98-107); Estimated GFR 48; Globulin 3.5 g/dL (2.4-3.5); Glucose 107 mg/dL (70-105); Magnesium 2.1 mg/dL (1.6-2.6); Potassium 4.6 mmol/L (3.5-5.1); Protein, Total 6.7 g/dL (6.0-8.3); Sodium 126 mmol/L (136-145)
[2022-01-15] MEDS: Levothyroxine Sodium 75 MCG TAB PO SCH (06:13)
[2022-01-15] MEDS: Furosemide 40 MG/4 ML VIAL SLOW IVP SCH ×2 (06:13→15:10)
[2022-01-15] MEDS: Heparin 5,000 UNITS/ML VIAL SC SCH ×3 (07:28→21:19)
[2022-01-15 08:22] LABS: INR-International Normal Ratio 1.7; PTT 40.8 sec (22.9-36.1); Prothrombin Time 19.8 sec (12.0-14.7)
[2022-01-15] MEDS ORDERED: Lidocaine 1% PF 5 ML VIAL ONE (09:01)
[2022-01-15] MEDS ORDERED: Sodium Bicarbonate 2.5 MEQ/5 ML VIAL ONE (09:01)
[2022-01-15] MEDS: Albumin 25% 25 GM/100 ML BOT IVPB SCH ×3 (12:13→21:19)
[2022-01-15] MEDS ORDERED: Digoxin 0.5 MG/2 ML AMP SLOW IVP SCH (21:45)
[2022-01-15 22:01] LABS: Anion Gap 14 mmol/L (10-20); BUN (Urea Nitrogen) 30 mg/dL (7.0-18.7); Calc. Creatinine Clearance 100 mL/min (70-130); Calcium 8.1 mg/dL (7.8-10.44); Carbon Dioxide 22 mmol/L (22-29); Chloride 96 mmol/L (98-107); Estimated GFR 62; Glucose 127 mg/dL (70-105); Potassium 3.9 mmol/L (3.5-5.1); Sodium 128 mmol/L (136-145)
[2022-01-15 22:06] LABS: Troponin I 0.016 ng/mL (< 0.028)
[2022-01-15] MEDS ORDERED: Amiodarone 150 MG in Dextrose 5% in Water 100 ML IVPB SCH (23:30)
[2022-01-15] MEDS ORDERED: Amiodarone 450 MG in Dextrose 5% in Water 250 ML IVPB SCH (23:45)
[2022-01-16] MEDS ORDERED: Digoxin 0.5 MG/2 ML AMP SLOW IVP SCH (00:45)
[2022-01-16 04:44] LABS: #Lymphocytes 0.5 thou/uL (1.20-3.40); #Neutrophils 7.1 thou/uL (1.40-6.50); %Eosinophils 0.4 % (0.0-10.0); %Lymphocytes 5.7 % (21.0-51.0); %Monocytes 11.9 % (0.0-10.0); Hemoglobin 8.8 g/dL (12.0-16.0); Mean Corpuscular HGB CONC 30.5 g/dL (32.0-36.0); Mean Corpuscular Hemoglobin 24.1 pg (27.0-31.0); Mean Corpuscular Volume 79.1 fL (78.0-98.0); Mean Platelet Volume 7.9 fL (7.4-10.4); Platelet Count 294 thou/uL (130-400); RBC Distribution Width 18.4 % (11.5-14.5); Red Blood Cell (RBC) Count 3.64 mill/uL (4.20-5.40); White Blood Cell (WBC) Count 8.6 thou/uL (4.8-10.8)
[2022-01-16 04:49] LABS: Anion Gap 13 mmol/L (10-20); BUN (Urea Nitrogen) 28 mg/dL (7.0-18.7); Calc. Creatinine Clearance 124 mL/min (70-130); Calcium 8.1 mg/dL (7.8-10.44); Carbon Dioxide 22 mmol/L (22-29); Chloride 97 mmol/L (98-107); Estimated GFR 81; Glucose 128 mg/dL (70-105); Potassium 3.6 mmol/L (3.5-5.1); Sodium 128 mmol/L (136-145)
[2022-01-16] MEDS: Albumin 25% 25 GM/100 ML BOT IVPB SCH ×4 (04:51→23:45)
[2022-01-16] MEDS: Furosemide 40 MG/4 ML VIAL SLOW IVP SCH ×2 (05:05→14:44)
[2022-01-16] MEDS: Levothyroxine Sodium 75 MCG TAB PO SCH (05:05)
[2022-01-16] MEDS: Heparin 5,000 UNITS/ML VIAL SC SCH ×3 (10:42→20:03)
[2022-01-16] MEDS: Propranolol 10 MG TAB PO SCH (20:03)
[2022-01-17 04:40] LABS: #Eosinphils 0.1 thou/uL (0.0-0.7); #Lymphocytes 0.6 thou/uL (1.20-3.40); #Monocytes 0.8 thou/uL (0.11-0.59); #Neutrophils 4.6 thou/uL (1.40-6.50); %Basophils 0.1 % (0.0-1.0); %Eosinophils 1.5 % (0.0-10.0); %Lymphocytes 10.2 % (21.0-51.0); %Monocytes 13.5 % (0.0-10.0); %Neutrophils 74.7 % (42.0-75.0); Hemoglobin 8.6 g/dL (12.0-16.0); Mean Corpuscular HGB CONC 30.7 g/dL (32.0-36.0); Mean Corpuscular Hemoglobin 23.8 pg (27.0-31.0); Mean Corpuscular Volume 77.8 fL (78.0-98.0); Mean Platelet Volume 7.8 fL (7.4-10.4); Platelet Count 268 thou/uL (130-400); RBC Distribution Width 18.6 % (11.5-14.5); Red Blood Cell (RBC) Count 3.61 mill/uL (4.20-5.40); White Blood Cell (WBC) Count 6.2 thou/uL (4.8-10.8)
[2022-01-17 05:01] LABS: Anion Gap 15 mmol/L (10-20); BUN (Urea Nitrogen) 19 mg/dL (7.0-18.7); Calc. Creatinine Clearance 129 mL/min (70-130); Calcium 8.6 mg/dL (7.8-10.44); Carbon Dioxide 24 mmol/L (22-29); Chloride 96 mmol/L (98-107); Estimated GFR 100; Glucose 142 mg/dL (70-105); Potassium 3.2 mmol/L (3.5-5.1); Sodium 132 mmol/L (136-145)
[2022-01-17] MEDS: Levothyroxine Sodium 75 MCG TAB PO SCH (05:37)
[2022-01-17] MEDS: Albumin 25% 25 GM/100 ML BOT IVPB SCH (05:37)
[2022-01-17] MEDS: Furosemide 40 MG/4 ML VIAL SLOW IVP SCH (05:37)
[2022-01-17] MEDS: Propranolol 10 MG TAB PO SCH (10:37)
[2022-01-17] MEDS: Heparin 5,000 UNITS/ML VIAL SC SCH (10:37)
[2022-01-17 11:57] VITALS: BP 101/59; TEMP 98.7
== END 2022-01-17 13:30 | disposition home or self-care (01) | DRG 432 ==
LOC: ERS 10:45 → 2NO 15:07
PROVIDERS: ADMIT Internal Medicine; ATTEND Internal Medicine
PROC: 0W9G3ZZ Drainage of Peritoneal Cavity, Percutaneous Approach (ICD-10-PCS; principal; 2022-01-15)
DX: K74.60 Unspecified cirrhosis of liver (principal); I50.43 Acute on chronic combined systolic (congestive) and diastolic (congestive) heart failure; Q24.2 Cor triatriatum; Q21.1 Atrial septal defect; E87.1 Hypo-osmolality and hyponatremia; N17.9 Acute kidney failure, unspecified; R18.8 Other ascites; I85.10 Secondary esophageal varices without bleeding; E03.9 Hypothyroidism, unspecified; I48.0 Paroxysmal atrial fibrillation; I07.1 Rheumatic tricuspid insufficiency; D63.8 Anemia in other chronic diseases classified elsewhere; Z79.899 Other long term (current) drug therapy; Z79.890 Hormone replacement therapy; Z88.8 Allergy status to other drugs, medicaments and biological substances; Z98.890 Other specified postprocedural states
CPT/HCPCS: 36415; 49083; 71045; 80048; 80053; 83735; 83880; 84484; 85025; 85610; 85730; 93005; 93010; 96374; J0282; J1160; J1644; J1940; J7070; P9047; U0003; U0005

== ENCOUNTER 2022-02-03 14:34 | Observation (INO) | payer MEDICAID, SELFPAY ==
[2022-02-03] MEDS ORDERED: Iopamidol-370 76% 500 ML 1 ML ONE (15:39)
[2022-02-03] MEDS ORDERED: Ondansetron PF 4 MG/2 ML Vial ONE (17:12)
[2022-02-03] MEDS ORDERED: Morphine 4 MG/ML VIAL ONE (17:12)
[2022-02-03] MEDS ORDERED: cefTRIAXone\\ROCEPHIN 2 GM VIAL ONE (18:59)
[2022-02-03 19:21] LABS: #Eosinphils 0.2 thou/uL (0.0-0.7); #Lymphocytes 0.5 thou/uL (1.20-3.40); #Monocytes 0.9 thou/uL (0.11-0.59); #Neutrophils 4.4 thou/uL (1.40-6.50); %Basophils 0.4 % (0.0-1.0); %Eosinophils 3.4 % (0.0-10.0); %Lymphocytes 7.8 % (21.0-51.0); %Monocytes 14.4 % (0.0-10.0); Hemoglobin 9.8 g/dL (12.0-16.0); Mean Corpuscular HGB CONC 30.9 g/dL (32.0-36.0); Mean Corpuscular Volume 77.7 fL (78.0-98.0); Mean Platelet Volume 8.1 fL (7.4-10.4); Platelet Count 332 thou/uL (130-400); RBC Distribution Width 18.9 % (11.5-14.5); Red Blood Cell (RBC) Count 4.06 mill/uL (4.20-5.40); White Blood Cell (WBC) Count 5.9 thou/uL (4.8-10.8)
[2022-02-03 19:38] LABS: BHCG - Serum Negative (NEGATIVE); Pregs Control Background? CLEAR/WHITE (CLR/WHITE); Pregs Control Bar Appear? YES (CONTROL BAR)
[2022-02-03 19:49] LABS: ALT (SGPT) 18 U/L (8-55); AST (SGOT) 34 U/L (5-34); Albumin 3.7 g/dL (3.5-5.0); Alkaline Phosphatase 301 U/L (40-110); Anion Gap 14 mmol/L (10-20); BUN (Urea Nitrogen) 14 mg/dL (7.0-18.7); Bilirubin, Total 3.3 mg/dL (0.2-1.2); Calc. Creatinine Clearance 0 mL/min (70-130); Carbon Dioxide 20 mmol/L (22-29); Chloride 100 mmol/L (98-107); Estimated GFR 112; Globulin 3.7 g/dL (2.4-3.5); Glucose 121 mg/dL (70-105); Lipase 18 U/L (8-78); Potassium 4.4 mmol/L (3.5-5.1); Protein, Total 7.4 g/dL (6.0-8.3); Sodium 130 mmol/L (136-145)
[2022-02-03] MEDS ORDERED: Aspirin Chewable 81 MG TAB ONE (20:59)
[2022-02-03] MEDS ORDERED: Furosemide 40 MG/4 ML VIAL ONE (20:59)
[2022-02-03] MEDS ORDERED: Acetaminophen 325 MG TAB PO PRN (23:12)
[2022-02-03] MEDS ORDERED: Ondansetron PF 4 MG/2 ML Vial IVP PRN (23:12)
[2022-02-03 23:16] LABS: Troponin I Less than 0.010 ng/mL (< 0.028)
[2022-02-04 01:53] VITALS: BMI 33.6
[2022-02-04 02:16] LABS: Troponin I Less than 0.010 ng/mL (< 0.028)
[2022-02-04 05:47] LABS: #Eosinphils 0.3 thou/uL (0.0-0.7); #Lymphocytes 0.6 thou/uL (1.20-3.40); #Monocytes 0.9 thou/uL (0.11-0.59); #Neutrophils 4.1 thou/uL (1.40-6.50); %Basophils 0.2 % (0.0-1.0); %Eosinophils 5.8 % (0.0-10.0); %Lymphocytes 9.9 % (21.0-51.0); %Monocytes 14.6 % (0.0-10.0); %Neutrophils 69.4 % (42.0-75.0); Hemoglobin 9.3 g/dL (12.0-16.0); Mean Corpuscular HGB CONC 31.1 g/dL (32.0-36.0); Mean Corpuscular Hemoglobin 24.4 pg (27.0-31.0); Mean Corpuscular Volume 78.4 fL (78.0-98.0); Mean Platelet Volume 7.8 fL (7.4-10.4); Platelet Count 300 thou/uL (130-400); RBC Distribution Width 19.3 % (11.5-14.5); Red Blood Cell (RBC) Count 3.83 mill/uL (4.20-5.40); White Blood Cell (WBC) Count 5.8 thou/uL (4.8-10.8)
[2022-02-04 06:01] LABS: Anion Gap 16 mmol/L (10-20); BUN (Urea Nitrogen) 15 mg/dL (7.0-18.7); Calc. Creatinine Clearance 132 mL/min (70-130); Calcium 9.1 mg/dL (7.8-10.44); Carbon Dioxide 19 mmol/L (22-29); Chloride 100 mmol/L (98-107); Estimated GFR 108; Glucose 96 mg/dL (70-105); Potassium 4.2 mmol/L (3.5-5.1); Sodium 131 mmol/L (136-145)
[2022-02-04] MEDS ORDERED: Furosemide 40 MG/4 ML VIAL SLOW IVP SCH ×2 (08:15→14:00)
[2022-02-04] MEDS ORDERED: Sodium Bicarbonate 2.5 MEQ/5 ML VIAL ONE (08:47)
[2022-02-04] MEDS ORDERED: Lidocaine 1% MPF 2 ML VIAL ONE (08:47)
[2022-02-04 11:21] LABS: RBC Count-Automated (BF) 1676 /cu.mm; WBC/Nucleated-Auto (BF) 342 /cu.mm
[2022-02-04 11:42] LABS: BF Color Yellow; Body Fluid Source Ascites Body Fluid; Clarity Hazy (Clear); Tube # EDTA
[2022-02-04 12:00] LABS: Eosinophils 2 %
[2022-02-04 12:01] LABS: BF Segmented Neutrophils 8 %; Cell Count Non Hematic 86 %; Lymphocytes 4 %
[2022-02-04 16:52] VITALS: BP 100/61; TEMP 97.5
[2022-02-04] MEDS ORDERED: cefTRIAXone\\ROCEPHIN 1 GM in Sodium Chloride 0.9% 100 ML IVPB SCH (19:00)
[2022-02-05] MEDS ORDERED: Levothyroxine Sodium 75 MCG TAB PO SCH (06:00)
[2022-02-05] MEDS ORDERED: Spironolactone 100 MG TAB PO SCH (08:00)
== END 2022-02-04 17:59 | disposition home or self-care (01) ==
LOC: ERS 14:34 → NEURO 22:27
PROVIDERS: ADMIT Student in an Organized Health Care Education/Training Program; ATTEND Student in an Organized Health Care Education/Training Program
PROC: 0W9G3ZZ Drainage of Peritoneal Cavity, Percutaneous Approach (ICD-10-PCS; principal; 2022-02-04)
DX: K74.60 Unspecified cirrhosis of liver (principal); R18.8 Other ascites; I50.813 Acute on chronic right heart failure; Q24.2 Cor triatriatum; E87.1 Hypo-osmolality and hyponatremia; I48.92 Unspecified atrial flutter; I07.1 Rheumatic tricuspid insufficiency; E03.9 Hypothyroidism, unspecified; K42.9 Umbilical hernia without obstruction or gangrene; Z79.890 Hormone replacement therapy; Z79.899 Other long term (current) drug therapy; Z88.8 Allergy status to other drugs, medicaments and biological substances
CPT/HCPCS: 36415; 49083; 74177; 80048; 80053; 83605; 83690; 83880; 84484; 84703; 85025; 85060; 87040; 87070; 87205; 89051; 93005; 96361; 96365; 96366; 96372; 96375; 96376; G0378; J0696; J1940; J2270; J2405; Q9967; U0003; U0005